=== PATIENT | female | born 1955 | race Caucasian/White ===

== ENCOUNTER 2017-08-12 05:52 | Inpatient (IN) | payer MEDICARE ==
[~2017-08-12 05:52] MED LIST: Buffered Lidocaine 0.9% SYRIN* 5 ML/SYR SYRINGE INTRADERM ONE; Vancomycin(*) 1,000 MG in NS 0.9% 250 ML* 250 ML IVPB SCH
[2017-08-12] MEDS ORDERED: Dexamethasone IV* 4 MG/ML 1 ML (4 MG) IV SLOW PU ONE (06:00)
[2017-08-12] MEDS ORDERED: Scopolamine 1.5 mg* PATCH TRANSDERM ONE (06:00)
[2017-08-12] MEDS ORDERED: Famotidine IV* 10 MG/ML 2 ML (20 mg) IV ONE (06:00)
[2017-08-12] MEDS ORDERED: Dexamethasone IV* 4 MG/ML 1 ML (4 MG) ONE (06:03)
[2017-08-12] MEDS ORDERED: Scopolamine 1.5 mg* PATCH ONE (06:03)
[2017-08-12] MEDS ORDERED: Famotidine IV* 10 MG/ML 2 ML (20 mg) ONE (06:03)
[2017-08-12] MEDS ORDERED: Morphine INJ* 10 MG/ML 1 ML CARPUJECT ONE ×3 (06:45→17:51)
[2017-08-12] MEDS ORDERED: Vancomycin(*) 1,000 MG in NS 0.9% 250 ML* 250 ML IVPB ONE (07:00)
[2017-08-12] MEDS ORDERED: Metoprolol Succinate XL TAB* 50 MG PO ONE (07:00)
[2017-08-12] MEDS ORDERED: Lidocaine 2% PF * 5 ML VIAL ONE (07:04)
[2017-08-12] MEDS ORDERED: Propofol* 10 MG/ML 20 ML BTL IV PUSH ONE ×2 (07:04→12:10)
[2017-08-12] MEDS ORDERED: Midazolam* 1 MG/ML 5 ML VIAL (5 MG) ONE (07:05)
[2017-08-12] MEDS ORDERED: fentaNYL* 50 MCG/ML 2 ML VIAL (100 MCG VIAL) ONE ×7 (07:05→14:38)
[2017-08-12] MEDS ORDERED: Lidocaine 1% MPF wEPI 200,000* 30 ML SDV ONE (07:15)
[2017-08-12] MEDS ORDERED: Bacitracin IV* 50,000 UNITS INJ ONE (07:15)
[2017-08-12] MEDS ORDERED: Thrombin 5,000 UNITS* 1 APPLIC KIT - topical use - TOPICAL ONE (07:15)
[2017-08-12] MEDS ORDERED: Propofol* 500 MG/50 ML BTL ONE (07:28)
[2017-08-12] MEDS ORDERED: Remifentanil* 2 MG VIAL ONE (07:29)
[2017-08-12] MEDS ORDERED: EPHEDrine (Pressors)* 50 MG/ML VIAL ONE (08:17)
[2017-08-12] MEDS ORDERED: Clindamycin 900 MG IVPREMIX(* 0 MG/0 ML SDV IV ONE (08:26)
[2017-08-12] MEDS ORDERED: Metoprolol Tartrate IV* 1 MG/ML 5 ML VIAL ONE (10:25)
[2017-08-12] MEDS ORDERED: Phenylephrine INJ* 10 MG/ML 1 ML VIAL (10 MG) ONE (11:41)
[2017-08-12] MEDS ORDERED: Naloxone* 0.4 MG/ML 1 ML VIAL IV PRN (12:15)
[2017-08-12] MEDS ORDERED: Ondansetron INJ* 2 MG/ML VIAL IV PRN (12:15)
[2017-08-12] MEDS ORDERED: PROCHLORPERAZINE INJ 5 MG/ML 2 ML VIAL IV PRN (12:15)
[2017-08-12] MEDS ORDERED: DiMENhydriNATE IV* 50 MG/ML VIAL ONE (12:24)
[2017-08-12] MEDS: fentaNYL* 50 MCG/ML 2 ML VIAL (100 MCG VIAL) IV PRN ×4 (13:48→14:53)
[2017-08-12] MEDS: Morphine INJ* 2 MG/ML 1 ML CARPUJECT IV PRN ×5 (13:49→14:15)
[2017-08-12] MEDS ORDERED: Acetaminophen TAB* 325 MG PO PRN (13:59)
[2017-08-12] MEDS ORDERED: Magnesium Hydroxide LIQ* 30 ML UDC PO PRN (14:10)
[2017-08-12] MEDS ORDERED: Docusate CAP* 100 MG PO PRN (14:23)
[2017-08-12] MEDS ORDERED: Senna TAB PO PRN (14:23)
[2017-08-12] MEDS ORDERED: oxyCODONE/Acetamin 5/325 MG* TAB ONE (14:55)
[2017-08-12] MEDS: oxyCODONE/Acetamin 5/325 MG* TAB PO PRN ×2 (14:57→14:58)
[2017-08-12] MEDS ORDERED: Morphine TAB Extended Release (*) 30 MG TAB.ER PO SCH (15:00)
[2017-08-12] MEDS ORDERED: Morphine TAB Extended Release (*) 15 MG TAB.ER PO SCH (16:07)
[2017-08-12] MEDS: Ondansetron 40 MG VIAL* 2 MG/ML 20 ML VIAL IV PRN ×2 (17:26→23:32)
--- NOTE | 2017-08-12 17:27 | CONSULT ---
Consult Consult: INPATIENT PAIN CONSULTATION Sherice Fulton is a 61 year old female. She injured her back many years ago. She underwent an instrumented fusion [place] [address] Dias. She had a lot of pain post op. She has been a patient in the pain clinic since 1999. She has been on chronic opioids since that time. She had removal of hardware done by Dr. Pillai in 2000. She has been on chronic opioids since that time, most recently on MSIR 15 mg 6 times a day. Last fall, she began to have more pain radiating down her legs, particularly her right leg. She had a new MRI in the fall of 2016. Post surgical changes were seen, along with severe right neural foraminal narrowing at L3/4. She was sent to DR. Lees and had a new MRI in March 2017. Again was seen severe right neyral foraminal narrowing at L3/4, with a leftward lumbar curve. She had a CT myelogram in June showing significant disc height loss at L3/4. She was evaluated by neurosurgery and a right L3/4 MIS TLIF with interbody cage and pedicle screws was offered. She was admitted to [facility] today and had the surgery. She has a lot of pain post-op. I am asked to see her. PAST MEDICAL HISTORY: Migraines, Osteoporosis Allergies latex Allergy (Verified 08/05/17 10:42) Rash Penicillins Allergy (Verified 08/05/17 10:42) Unknown Reaction Details Sulfa (Sulfonamide Antibiotics) Allergy (Verified 08/05/17 10:42) Rash tapentadol Allergy (Verified 08/05/17 10:42) Hives alendronate sodium Adverse Reaction (Verified 08/05/17 10:42) GI Upset cyclobenzaprine Adverse Reaction (Verified 08/05/17 10:42) Nausea pregabalin Adverse Reaction (Verified 08/12/17 16:13) GI Upset PLASTIC SURGICAL DRAPES Allergy (Uncoded 08/12/17 06:09) Unknown Reaction Details PT HAD SURGERY ON SHOULDER AND HAD REACTION TO THE DRAPES USED. PT BROKE OUT IN HIVES AND HAD DIFFICULTY BREATHING. Current Medications Acetaminophen (Tylenol Tab*) 650 mg PO Q4H PRN PRN Reason: PAIN Hydrocodone Bitart/Acetaminophen ([place] 5-325 Tab*) 2 tab PO Q4H PRN PRN Reason: marked pain Docusate Sodium (Colace Cap*) 100 mg PO BID PRN PRN Reason: CONSTIPATION Lactated Ringer's (Lactated Ringers 1000 Ml Bag*) 1,000 mls @ 75 mls/hr IV .per rate TERRI Last Admin: 08/12/17 15:56 Dose: 75 mls/hr Magnesium Hydroxide (Milk Of Magnesia Liq*) 30 ml PO DAILY PRN PRN Reason: CONSTIPATION Methocarbamol (Robaxin Tab*) 1,000 mg PO Q6H PRN PRN Reason: SPASMS Metoprolol Succinate (Toprol Xl Tab*) 50 mg PO QAM [facility] Morphine Sulfate (Morphine Oral.Soln 10 Mg*) 20 mg PO Q4H PRN PRN Reason: PAIN - SEVERE Naloxone HCl (Narcan*) 0.08 mg IV Q2M PRN PRN Reason: severe induced resp depression Stop: 08/13/17 12:14 Ondansetron HCl (Zofran 40 Mg Vial*) 4 mg IV Q6H PRN PRN Reason: NAUSEA/VOMITING Last Admin: 08/12/17 17:26 Dose: 4 mg Pharmacy Profile Note (Scopolamine Patch Remove*) 1 note PATCH OFF ONCE ONE Stop: 08/15/17 06:01 Senna (Senokot Tab*) 1 tab PO BEDTIME PRN PRN Reason: CONSTIPATION SOCIAL HISTORY: Non smoker, Non drinker. Lives alone Vital Signs Temp Pulse Resp BP Pulse Ox 97.5 F 87 16 145/72 99 08/12/17 16:25 08/12/17 16:25 08/12/17 16:25 08/12/17 16:25 08/12/17 16:25 EXAM: HEENT: EOMI, PERRL LUNGS: Clear HEART: Reg rhythm ABDOMEN: Soft +BS EXTREMITIES: Normal tone BACK: Wound dressed NEUROLOGIC: ALert and oriented. Moves all 4 extremities ASSESSMENT: 1. S/P Right L3/4 MIS TLIF 2. Chronic opioid use PLAN: I will change her morphine from MS Contin 15 mg Q 4 PRN to Morphine elixir 20 mg Q4 PRN. I will also order IV MSO4 for unrelieved pain. She may need MS Contin as well. I have also added Robaxin for back spasms and bowel medications. I will follow.
[2017-08-12] MEDS ORDERED: Morphine VIAL* 4 MG/ML VIAL (1 ml vial) IV PRN (17:46)
[2017-08-12] MEDS ORDERED: Morphine VIAL* 4 MG/ML VIAL (1 ml vial) IV ONE (17:55)
[2017-08-12] MEDS ORDERED: Morphine INJ* 10 MG/ML 1 ML CARPUJECT IV ONE (17:55)
[2017-08-12] MEDS: Docusate CAP* 100 MG PO SCH (21:11)
[2017-08-12] MEDS: Morphine ORAL.SOLN 10 mg* 2 MG/ML UDC 5 ml PO PRN (21:12)
[2017-08-12] MEDS: Senna TAB PO SCH (21:12)
[2017-08-13] MEDS: Morphine VIAL* 4 MG/ML VIAL (1 ml vial) IV PRN ×3 (00:21→11:47)
[2017-08-13] MEDS: Ondansetron 40 MG VIAL* 2 MG/ML 20 ML VIAL IV PRN ×2 (06:07→11:47)
--- NOTE | 2017-08-13 07:19 | RAD ---
INDICATION: L3-L4 intraoperative fusion with interbody cage. COMPARISON: Correlation is made with a prior x-ray study from June 30, 2017. TECHNIQUE: 7.5 seconds of intermittent fluoroscopic guidance were provided and 3 spot films of the lumbar spine were obtained and a small [id number] limited CT images were obtained of the lumbar spine. FINDINGS: The films demonstrate placement of pedicle screws bilaterally at the L3-L4 level and interbody cage fusion graft. IMPRESSION: INTRAOPERATIVE CONTROL FILMS. CPT II Codes: G9500
--- NOTE | 2017-08-13 07:22 | RAD ---
INDICATION: L3-L4 pedicle fusion with interbody body cage fusion. COMPARISON: Correlation is made with a prior intraoperative study of the same date. TECHNIQUE: 42.1 seconds of intermittent fluoroscopic guidance were provided and 8 spot films of the lumbar spine were obtained in the operating room. FINDINGS: The films demonstrate an interbody cage fusion at the L3-L4 level and posterior spinal fusion with pedicle screws at that level. IMPRESSION: INTRAOPERATIVE CONTROL FILMS. CPT II Codes: G9500
[2017-08-13] MEDS: Docusate CAP* 100 MG PO SCH (08:29)
--- NOTE | 2017-08-13 08:32 | RAD ---
INDICATION: Back pain COMPARISON: None TECHNIQUE: Seated AP and lateral imaging of the thoracolumbar spine was performed . FINDINGS: There is osteopenia with a moderate S type scoliotic deformity. There is prior lumbar fusion with cage device and with decompression at L3-L4. There are no paravertebral abnormalities. IMPRESSION: INTERVAL L3-L4 FUSION.
[2017-08-13] MEDS ORDERED: SUMAtriptan TAB* 50 MG PO ONE ×2 (08:36→21:00)
[2017-08-13] MEDS: Metoprolol Succinate XL TAB* 50 MG PO SCH (09:19)
--- NOTE | 2017-08-13 11:03 | OP ---
DATE OF OPERATION: 08/12/17 - ROOM #352 DATE OF : 51 SURGEON: Susana Cunningham MD EDUCATION DEPARTMENT REGISTRAR: PRETTY Ramos. The case was done with the assistance of a surgical PA because of the complexity of the case. ANESTHESIA: General. PRE-OP DIAGNOSES: Degenerative disk disease L3-4, right L3-4 neural foraminal stenosis. POST-OP DIAGNOSES: Degenerative disk disease L3-4, right L3-4 neural foraminal stenosis. OPERATIVE PROCEDURE: The patient underwent right L3-4 MIS TLIF with PEEK expandable interbody cage, local bone graft, autologous left iliac crest bone graft through a seperate incision, DBX, pedicle screws L3 and L4, and intraoperative navigation. ESTIMATED BLOOD LOSS: 50 cc. COMPLICATIONS: None. SUMMARY: The patient is a very pleasant 61-year-old female with a long history of chronic back pain. The patient had a history of previous lumbar decompression and fusion with TLIF at L4-5 and L5-S1 by Dr. Dias. She subsequently developed infection and had her hardware removed by Dr. Pillai. The patient presented with significant back pain radiating to the right lower extremity with significant weakness on the right lower extremity. She also had chronic S1 radiculopathy. The patient failed conservative treatment modalities and she was offered the option of surgical intervention after MRI and CT myelogram findings were consistent with degenerative disk disease, deformity and right L3-4 neural foraminal stenosis due to asymmetric degeneration of the disk space. After explaining expectations, limitations, and possible complications of the procedure with complications included, but not limited to bleeding, infection, risk of injury to adjacent structures, coma, paralysis, , need for additional procedures, anesthesia risks, stroke, blindness, cancer, instability, hardware failure, adjacent level disease, pseudoarthrosis, pseudomeningocele, spinal fluid leak, need for placement of lumbar drain, the patient was agreeable to proceed with surgery and informed consent was obtained. She understood that her condition may not improve and in fact may get worse after the surgery and she may need to have additional procedures in the future. She also understood that operative plan may be modified according to intraoperative findings and conditions. DESCRIPTION OF PROCEDURE: The patient was brought to the operating room, was placed under general anesthesia by the anesthesia team. She was carefully positioned prone on the Kuldeep table and all bony prominences were meticulously padded. Her skin was prepped and draped in the standard fashion. After appropriate surgical pause and patient identification, a small incision over the left iliac crest was performed after infiltrating the skin with local anesthetic. A Corex trocar was used to harvest iliac crest bone graft minimally invasively while the navigation star was secured in place from the same incision. Intraoperative O-arm imaging was obtained and the patient later was transferred to the navigation platform. The appropriate surgical level was identified and the appropriate incisions were marked on the skin with use of intraoperative navigation. The skin was infiltrated with local anesthetic and a small paramedian incision over the right L3-4 disk space was performed with # 10 surgical blade. The incision was carried down into the dorsal fascia and over a series of dilators with the assistance of intraoperative navigation, [employer] tubular retractor system was introduced into the field. Intraoperative microscope was brought into the field and after removing the residual muscle fibers, the right L3-4 facet pars as well as the remnant of the lamina were readily identified. A significant amount of scar tissue was encountered. Careful and meticulous dissection of the scar tissue allowed for identification of the bone schultz of the lamina. These were further exposed with the use of micro curettes. High-speed drill was used to perform a hemilaminectomy, medial facetectomy, as well as partial resection of the pars in order to perform a wide decompression and gain access to the area of the disk space. A significant amount of scar tissue was encountered and very careful dissection was performed each step of the way. The medial and superior border of the pedicle of L4 was carefully skeletonized and after gentle medial retraction of the thecal sac and superior of the soft tissue containing the exiting nerve root , a fold of the posterior longitudinal ligament with small amount of disk was identified. A #15 surgical blade was used to incise the posterior longitudinal ligament and to remove the existing disk material. Due to significant disk height loss and collapse of the disk space, the disk space was identified with the use of high-speed drill, pituitary rongeurs and Kerrison punches. A small osteotome was used to enter the disk space and start the first dilator. Disk preparation was performed with a series of dilators and meticulous preparation of the endplates was performed. After appropriate sizing of the disk space and preparation of the endplates with curettes, an Elevate Medtronic PEEK expandable cage was inserted after being filled with locally harvested iliac crest bone graft and DBX while the remainder of the graft material was placed into the disk space prior to the insertion of the cage. The cage was carefully expanded and after confirmation of meticulous hemostasis and careful inspection of the wound, the dura was found to be free of any pressure phenomenon and meticulous hemostasis was confirmed. The tubular retractor was gently removed and the dorsal fascia was approximated with 0 interrupted Vicryl sutures. The second O-arm imaging was performed and confirmed excellent placement of the interbody cage. The data was used in the navigation platform in order to chan the projection of the pedicle screw trajectories on the skin. After infiltrating skin on the left side with local anesthetic, a #10 surgical blade was used to incise the skin on the left side. A navigated drill guide with high torque drill was used to cannulate the pedicles with stereotactic navigation under AP fluoroscopy. 6.5 x 45 mm [employer]tronic screws were then placed in each pedicle of L3 and L4 while 2 rods were then placed through the same stab wound incisions and secured with the screw head caps. Further intraoperative O-arm imaging was then obtained, which confirmed excellent placement of all hardware. After removing the extension towers and securing the screw head caps, the wounds were copiously irrigated and after meticulous inspection and confirmation of meticulous hemostasis, the wound closed by layers with 0 interrupted Vicryl sutures to approximate the dorsal fascia while the subcutaneous tissue was approximated with 2-0 interrupted Vicryl sutures. The skin was then covered with Dermabond. At the end of the procedure, all counts were reported to be correct. The patient remained hemodynamically stable throughout the case. Intraoperative electrophysiological monitoring was stable throughout the case. The patient was then turned supine, was extubated and was transferred to Recovery in excellent condition. The case was done with assistance of a surgical PA because of the complexity of the case. [id number]/[facility] #: [id number] CHERYL
[2017-08-13] MEDS ORDERED: PROCHLORPERAZINE INJ 5 MG/ML 2 ML VIAL ONE (12:09)
[2017-08-13] MEDS: PROCHLORPERAZINE INJ 5 MG/ML 2 ML VIAL IV PRN ×2 (12:11→18:14)
--- NOTE | 2017-08-13 13:00 | PN ---
Progress Note - Progress Note Date of Service: 08/13/17 Note: INPATIENT PAIN CONSULT-FOLLOW UP Sherice was visited. A lot of nausea overnight, so she has not been able to get oral morphine. The Zofran and Scopolamine have been ineffective. She also complains of migraines, but her triptan has not helped. Will try different anti- emetics Current Medications Acetaminophen (Tylenol Tab*) 650 mg PO Q4H PRN PRN Reason: PAIN Hydrocodone Bitart/Acetaminophen ([place] 5-325 Tab*) 2 tab PO Q4H PRN PRN Reason: marked pain Docusate Sodium (Colace Cap*) 100 mg PO BID [facility] Last Admin: 08/13/17 08:29 Dose: Not Given Lactated Ringer's (Lactated Ringers 1000 Ml Bag*) 1,000 mls @ 75 mls/hr IV .per rate [facility] Last Admin: 08/13/17 05:13 Dose: 75 mls/hr Magnesium Hydroxide (Milk Of Magnesia Liq*) 30 ml PO DAILY PRN PRN Reason: CONSTIPATION Methocarbamol (Robaxin Tab*) 1,000 mg PO Q6H PRN PRN Reason: SPASMS Metoclopramide HCl (Reglan Iv*) 10 mg IV Q6H PRN PRN Reason: NAUSEA/VOMITING Metoprolol Succinate (Toprol Xl Tab*) 50 mg PO QAM [facility] Last Admin: 08/13/17 09:19 Dose: 50 mg Morphine Sulfate (Morphine Oral.Soln 10 Mg*) 20 mg PO Q4H PRN PRN Reason: PAIN - SEVERE Last Admin: 08/12/17 21:12 Dose: 20 mg Morphine Sulfate (Morphine Vial*) 5 mg IV Q4HR PRN PRN Reason: PAIN - UNRELIEVED Last Admin: 08/13/17 11:47 Dose: 5 mg Pharmacy Profile Note (Scopolamine Patch Remove*) 1 note PATCH OFF ONCE ONE Stop: 08/15/17 06:01 Prochlorperazine Edisylate (Compazine Inj*) 5 mg IV Q6H PRN PRN Reason: NAUSEA/VOMITING Last Admin: 08/13/17 12:11 Dose: 5 ml Senna (Senokot Tab*) 2 tab PO BEDTIME [facility] Last Admin: 08/12/17 21:12 Dose: 2 tab Vital Signs Temp Pulse Resp BP Pulse Ox 97.5 F 80 16 125/81 96 08/13/17 03:05 08/13/17 07:42 08/13/17 12:37 08/13/17 07:42 08/13/17 07:42 EXAM: LUNGS: Clear HEART: Reg rhythm ABDOMEN: Soft BACK: wound dry ASSESSMENT: 1. L3/4 TLIF 2. Chronic pain 3. Nausea PLAN: Will continue current pain medications. Will add Regaln to compazine and d /c Scopolamine and Zofran. I may need to d/c Morphine in favor of something else
[2017-08-13] MEDS: Methocarbamol TAB* 500 MG PO PRN (13:06)
[2017-08-13] MEDS: Morphine ORAL.SOLN 10 mg* 2 MG/ML UDC 5 ml PO PRN (18:10)
[2017-08-13] MEDS: Metoclopramide IV* 5 MG/ML 2 ML VIAL IV PRN (21:32)
[2017-08-14] MEDS: Docusate CAP* 100 MG PO SCH ×3 (00:14→19:29)
[2017-08-14] MEDS: Senna TAB PO SCH ×2 (00:15→19:29)
[2017-08-14] MEDS: PROCHLORPERAZINE INJ 5 MG/ML 2 ML VIAL IV PRN ×3 (00:15→21:43)
[2017-08-14] MEDS: HYDROcodone/ACETAMIN 5-325 MG* 1 TAB PO PRN ×2 (01:37→06:15)
[2017-08-14] MEDS: Morphine VIAL* 4 MG/ML VIAL (1 ml vial) IV PRN ×3 (02:11→19:24)
[2017-08-14] MEDS ORDERED: SUMAtriptan TAB* 50 MG PO ONE (07:09)
--- NOTE | 2017-08-14 07:13 | PN ---
Progress Note - Progress Note Date of Service: 08/14/17 SOAP: Subjective: []POD # 2 C/O incisional pain,leg cramping as pre op Migraine headache yesterday Objective: []Neuro intact Dressing dry Assessment: []Slow progress Plan: []Plan to get Ho out Increase activity level
[2017-08-14] MEDS: Metoprolol Succinate XL TAB* 50 MG PO SCH (08:24)
[2017-08-14] MEDS ORDERED: HYDROmorphone TAB* 4 MG PO PRN (09:28)
[2017-08-14 09:35] LABS: ABS Basophils 0 10^3/ul (0-0.2); ABS Eosinophils 0.1 10^3/ul (0-0.6); ABS Lymphocytes 0.9 10^3/ul (1.0-4.8); ABS Monocytes 0.8 10^3/ul (0-0.8); ABS Neutrophils 5.5 10^3/ul (1.5-7.7); ABS Nucleated RBC 0 10^3/ul; Eosinophil % 1.3 % (0-6); Hematocrit 30 % (35-47); Hemoglobin 10.3 g/dl (12.0-16.0); Mean Corpuscular HGB Conc 34 g/dl (31-36); Mean Corpuscular Hemoglobin 30 pg (27-31); Mean Corpuscular Volume 87 fL (80-97); Mean Platelet Volume 7.3 um3 (7.4-10.4); Nucleated Red Blood Cells % 0.1; Platelet Count 201 10^3/ul (150-450); Red Blood Count 3.44 10^6/ul (4.0-5.4); Red Cell Distribution Width 13 % (10.5-15); White Blood Count 7.3 10^3/ul (3.5-10.8)
[2017-08-14] MEDS ORDERED: Butalb/Acetamin/Caff TAB* 1 TAB PO ONE (10:00)
[2017-08-14] MEDS: Metoclopramide IV* 5 MG/ML 2 ML VIAL IV PRN (10:42)
--- NOTE | 2017-08-14 14:03 | PN ---
Progress Note - Progress Note Date of Service: 08/14/17 Note: INPATIENT PAIN CONSULT-FOLLOW UP Continued nausea overnight with liquid morphine. I discussed her case with her primary nurse. I discontinued Morphine and tried Dilaudid 4 mg (15 mg Morphine eqivalence) every 4 hours as needed. She also had continued migraines not responsive to Triptans. I ordered one dose of Fioricet. Looks much better at the present time and feels better. Able to eat, pain controlled, headache better Current Medications Acetaminophen (Tylenol Tab*) 650 mg PO Q4H PRN PRN Reason: PAIN Hydrocodone Bitart/Acetaminophen ([place] 5-325 Tab*) 2 tab PO Q4H PRN PRN Reason: marked pain Last Admin: 08/14/17 06:15 Dose: 2 tab Docusate Sodium (Colace Cap*) 100 mg PO BID [facility] Last Admin: 08/14/17 08:24 Dose: 100 mg Hydromorphone HCl (Dilaudid Tab*) 4 mg PO Q4H PRN PRN Reason: PAIN Last Admin: 08/14/17 12:56 Dose: 4 mg Magnesium Hydroxide (Milk Of Magnesia Liq*) 30 ml PO DAILY PRN PRN Reason: CONSTIPATION Methocarbamol (Robaxin Tab*) 1,000 mg PO Q6H PRN PRN Reason: SPASMS Last Admin: 08/13/17 13:06 Dose: 1,000 mg Metoclopramide HCl (Reglan Iv*) 10 mg IV Q6H PRN PRN Reason: NAUSEA/VOMITING Last Admin: 08/14/17 10:42 Dose: 10 mg Metoprolol Succinate (Toprol Xl Tab*) 50 mg PO QAM [facility] Last Admin: 08/14/17 08:24 Dose: 50 mg Morphine Sulfate (Morphine Vial*) 5 mg IV Q4HR PRN PRN Reason: PAIN - UNRELIEVED Last Admin: 08/14/17 07:38 Dose: 5 mg Pharmacy Profile Note (Scopolamine Patch Remove*) 1 note PATCH OFF ONCE ONE Stop: 08/15/17 06:01 Prochlorperazine Edisylate (Compazine Inj*) 5 mg IV Q6H PRN PRN Reason: NAUSEA/VOMITING Last Admin: 08/14/17 07:30 Dose: 5 ml Senna (Senokot Tab*) 2 tab PO BEDTIME [facility] Last Admin: 08/14/17 00:15 Dose: Not Given Laboratory Results - last 24 hr 08/14/17 08/14/17 08:44 08:44 WBC 7.3 RBC 3.44 L Hgb 10.3 L Hct 30 L MCV 87 MCH 30 MCHC 34 RDW 13 Plt Count 201 MPV 7.3 L Neut % (Auto) 75.2 Lymph % (Auto) 12.0 L [place] % (Auto) 10.9 H Eos % (Auto) 1.3 Baso % (Auto) 0.6 Absolute Neuts (auto) 5.5 Absolute Lymphs (auto) 0.9 L Absolute Monos (auto) 0.8 Absolute Eos (auto) 0.1 Absolute Basos (auto) 0 Absolute Nucleated RBC 0 Nucleated RBC % 0.1 Sodium 133 L Potassium 3.3 L Chloride 98 L Carbon Dioxide 28 Anion Gap 7 Vital Signs Temp Pulse Resp BP Pulse Ox 97.7 F 73 16 148/76 96 08/14/17 11:18 08/14/17 11:18 08/14/17 12:56 08/14/17 11:18 08/14/17 11:18 EXAM: LUNGS: Clear bilaterally HEART: Reg rhythm ABDOMEN: soft BACK: Dressing clean NEUROLOGIC: Alert oriented. Able to move all 4 extremities ASSESSMENT: 1. TLIF L3/4 2. Migraines 3. Nausea PLAN: Continue PO Dilaudid. Will try Reglan PO, and compazine PO. Fioricet 1 PO Q6 PRN
[2017-08-14] MEDS ORDERED: Prochlorperazine TAB* 10 MG PO PRN (14:10)
[2017-08-14] MEDS ORDERED: HYDROmorphone TAB* 2 MG PO PRN (14:14)
[2017-08-14] MEDS: Methocarbamol TAB* 500 MG PO PRN (15:02)
[2017-08-14] MEDS: Metoclopramide TAB* 10 MG PO SCH (17:34)
[2017-08-14] MEDS: HYDROmorphone TAB* 4 MG PO PRN ×2 (17:37→21:42)
[2017-08-14] MEDS: Butalb/Acetamin/Caff TAB* 1 TAB PO PRN (19:28)
[2017-08-15] MEDS: HYDROmorphone TAB* 4 MG PO PRN ×4 (01:38→15:00)
[2017-08-15] MEDS: Butalb/Acetamin/Caff TAB* 1 TAB PO PRN (03:20)
[2017-08-15] MEDS: Methocarbamol TAB* 500 MG PO PRN ×3 (03:24→20:26)
[2017-08-15] MEDS: PROCHLORPERAZINE INJ 5 MG/ML 2 ML VIAL IV PRN ×2 (05:44→23:19)
[2017-08-15] MEDS ORDERED: Scopolamine PATCH Remove* 1 NOTE MISC PATCH OFF ONE (06:00)
--- NOTE | 2017-08-15 07:02 | PN ---
Progress Note - Progress Note Date of Service: 08/15/17 SOAP: Subjective: []c/o poor pain control Had been switched to Dilaudid yeterday Has ambulated RLE pain better than pre op Objective: []Labs OK HCT 30 Dressing intact Assessment: []Very slow progress Plan: [] Pain management per Dr. Fuentes
[2017-08-15] MEDS: Docusate CAP* 100 MG PO SCH ×2 (07:54→19:11)
[2017-08-15] MEDS: Metoclopramide TAB* 10 MG PO SCH ×3 (07:54→17:04)
[2017-08-15] MEDS: Metoprolol Succinate XL TAB* 50 MG PO SCH (07:54)
[2017-08-15] MEDS: Morphine VIAL* 4 MG/ML VIAL (1 ml vial) IV PRN ×3 (12:56→21:34)
[2017-08-15] MEDS ORDERED: HYDROmorphone TAB* 4 MG PO PRN (18:30)
[2017-08-15] MEDS: HYDROmorphone TAB* 2 MG PO PRN ×2 (19:11→23:19)
[2017-08-15] MEDS: Senna TAB PO SCH (19:11)
[2017-08-16] MEDS: HYDROmorphone TAB* 2 MG PO PRN ×6 (03:10→23:28)
[2017-08-16] MEDS: Methocarbamol TAB* 500 MG PO PRN ×4 (04:20→23:26)
[2017-08-16] MEDS: Morphine VIAL* 4 MG/ML VIAL (1 ml vial) IV PRN (05:58)
[2017-08-16] MEDS: Docusate CAP* 100 MG PO SCH ×2 (07:40→19:49)
[2017-08-16] MEDS: Metoclopramide TAB* 10 MG PO SCH ×3 (07:40→17:01)
[2017-08-16] MEDS: Metoprolol Succinate XL TAB* 50 MG PO SCH (07:40)
[2017-08-16] MEDS: Senna TAB PO SCH (19:49)
[2017-08-17] MEDS: HYDROmorphone TAB* 2 MG PO PRN ×3 (03:21→11:53)
[2017-08-17] MEDS: Butalb/Acetamin/Caff TAB* 1 TAB PO PRN (04:39)
[2017-08-17] MEDS: Metoclopramide TAB* 10 MG PO SCH ×2 (07:30→11:54)
[2017-08-17] MEDS: Docusate CAP* 100 MG PO SCH (07:44)
[2017-08-17] MEDS: Metoprolol Succinate XL TAB* 50 MG PO SCH (07:44)
--- NOTE | 2017-08-17 08:45 | RAD ---
HISTORY: Scoliosis, status post spinal fusion COMPARISONS: August 13, 2017 VIEWS: 2 , Frontal and lateral views of the lumbar spine while standing FINDINGS: ALIGNMENT: There is a scoliotic curvature of the spine. VERTEBRAL BODIES: The patient is status post spinal fusion at L3 and L4 with bilateral pedicle screws. There is no hardware failure or osteolysis. JOINTS: There is facet hypertrophy change along the lower lumbar spine. INTERVERTEBRAL DISCS: An intervertebral prosthesis is noted at L3-L4. SOFT TISSUE: Unremarkable. OTHER: The pelvis is unremarkable. The lung bases are clear. 1. IMPRESSION: 2. SCOLIOSIS. 3. STATUS POST SPINAL FUSION.
[2017-08-17] MEDS: Methocarbamol TAB* 500 MG PO PRN (12:33)
[2017-08-17 12:36] VITALS: BP 130/68
--- NOTE | 2017-08-17 12:36 | PN ---
Progress Note - Progress Note Date of Service: 08/17/17 SOAP: Subjective: []Patient was seen late yesterday evening. No events ON. Ambulate, Tolerates PO well, Voids. Pain well controlled with PO medications. Preop RLE pain has resolved. Back pain has significantly improved. Wants to go home. Objective: []VSS, Afebrile Wounds s,c,d Motor 5/5 all extremities Sensory grossly intact to light touch, except Rt S1(decreased, but improved c/w baseline) Assessment: []61 yof sp Rt L3-4 MIS TLIF Plan: []Patient is doing very well. Wants to go home. Would not like to wait to be seen today. DC home today Patient to call office for lumbar brace. Appreciate Dr Lima's care. Discussed with Dr Lima, Patient has instructions to resume home pain meds and call Dr Lima's office with questions. Full instructions were given. Toyin Cunningham MD
--- NOTE | 2017-08-17 23:17 | DS ---
DISCHARGE SUMMARY: DATE OF ADMISSION: 08/12/17 DATE OF DISCHARGE: 08/17/17 PROCEDURE: The patient underwent a right L3-4 MIS TLIF with PEEK expandable interbody cage, local bone graft with autologous, iliac crest bone graft DBX, pedicle screws L3 and L4. HOSPITAL COURSE: The patient is a pleasant 61-year-old female with long history of chronic back pain. The patient had a history of previous lumbar decompression and fusion with TLIF at L4-5 and L5-S1 by Dr. Dias. She subsequently developed infection and had her hardware removed by Dr. Pillai. The patient presented with significant back pain radiating to the right lower extremity with significant weakness on the right lower extremity. The patient also had chronic S1 radiculopathy, unfortunately failed conservative treatment and because of CT scan and myelogram findings consistent with degenerative disk disease with significant right L3-4 neural foraminal stenosis due to asymmetric degeneration of the disk space. She was offered the option of surgical procedure in the form of right L3-4 MIS. The patient underwent the above procedure, tolerated the procedure well, was extubated and was transferred to the floor. She continued to improve. Her pain was controlled very well. She has a history of chronic pain medication use and for this reason, Dr. Fuentes was consulted to coordinate the patient's pain management. The patient continued to improve, was able to ambulate, tolerating p.o. well. She was voiding and had good pain control with p.o. medication and on 08/17/17, she was felt to be able to be discharged to home. The patient also felt ready and wanted to be discharged. DISPOSITION: Home. Full instructions were given to the patient. The patient was discharged home with instructions to resume her home pain medication regimen by Dr. Fuentes and was instructed to follow up in the office in 7 to 10 days for a wound check and follow up with Dr. Fuentes for any pain medication needs. She was also instructed to call her primary physician to review her medication list. [id number]/[facility] #: [id number] CHERYL
== END 2017-08-17 13:06 | disposition home or self-care (01) | DRG 460 ==
LOC: AA 05:52 → SSU 15:27
PROVIDERS: ADMIT Neurological Surgery; ATTEND Neurological Surgery
PROC: 0QB Lower Bones, Excision (ICD-10-PCS; 2017-08-12)
PROC: 0SB20ZZ Excision of Lumbar Vertebral Disc, Open Approach (ICD-10-PCS; 2017-08-12)
PROC: 8E0WXBF Computer Assisted Procedure of Trunk Region, With Fluoroscopy (ICD-10-PCS; 2017-08-12)
PROC: 0SG00AJ Fusion of Lumbar Vertebral Joint with Interbody Fusion Device, Posterior Approach, Anterior Column, Open Approach (ICD-10-PCS; principal; 2017-08-12 07:30)
DX: M51.16 Intervertebral disc disorders with radiculopathy, lumbar region (principal); G89.29 Other chronic pain; M25.78 Osteophyte, vertebrae; M41.86 Other forms of scoliosis, lumbar region; M47.896 Other spondylosis, lumbar region; F11.90 Opioid use, unspecified, uncomplicated; I10 Essential (primary) hypertension; M48.061 Spinal stenosis, lumbar region without neurogenic claudication; M81.0 Age-related osteoporosis without current pathological fracture; J32.2 Chronic ethmoidal sinusitis; J32.3 Chronic sphenoidal sinusitis; M54.2 Cervicalgia; M79.7 Fibromyalgia; G43.009 Migraine without aura, not intractable, without status migrainosus; R11.0 Nausea; Z80.8 Family history of malignant neoplasm of other organs or systems; Z82.61 Family history of arthritis; Z68.21 Body mass index [BMI] 21.0-21.9, adult; Z87.891 Personal history of nicotine dependence; Z80.3 Family history of malignant neoplasm of breast; Z82.49 Family history of ischemic heart disease and other diseases of the circulatory system; Z84.89 Family history of other specified conditions; Z82.3 Family history of stroke; Z83.49 Family history of other endocrine, nutritional and metabolic diseases; Z91.040 Latex allergy status; Z88.5 Allergy status to narcotic agent; Z88.0 Allergy status to penicillin; Z88.2 Allergy status to sulfonamides; Z88.8 Allergy status to other drugs, medicaments and biological substances; Z91.048 Other nonmedicinal substance allergy status; Z98.1 Arthrodesis status
CPT/HCPCS: 36415; 72100; 76001; 80051; 85025; A9270-GY; C1713; C9359; G8978-GP-CK; G8979-GP-CI; G8979-GP-CK; G8980-GP-CI; J0780; J1100; J1240; J2001; J2250; J2270; J2704; J2765; J3010; J3370; J3490; Q0164

== ENCOUNTER 2018-06-02 05:34 | Inpatient (IN) | payer MEDICARE, OTHER ==
[~2018-06-02 05:34] MED LIST changes: -Buffered Lidocaine 0.9% SYRIN* 5 ML/SYR SYRINGE INTRADERM ONE; +Buffered Lidocaine 1% SYRIN* 1 ML/SYRINGE INTRADERM ONE; -Vancomycin(*) 1,000 MG in NS 0.9% 250 ML* 250 ML IVPB SCH
[2018-06-02] MEDS ORDERED: Famotidine IV* 10 MG/ML 2 ML (20 mg) ONE (06:00)
[2018-06-02] MEDS ORDERED: Lactated Ringers 1000 ML Bag* 1,000 ML IV SCH (06:00)
[2018-06-02] MEDS ORDERED: Famotidine IV* 10 MG/ML 2 ML (20 mg) IV ONE (06:00)
[2018-06-02] MEDS ORDERED: Dexamethasone IV* 4 MG/ML 1 ML (4 MG) ONE (06:00)
[2018-06-02] MEDS ORDERED: Dexamethasone IV* 4 MG/ML 1 ML (4 MG) IV SLOW PU ONE (06:00)
[2018-06-02] MEDS ORDERED: Lidocaine 1% MPF wEPI 200,000* 30 ML SDV ONE (06:41)
[2018-06-02] MEDS ORDERED: Thrombin 5,000 UNITS* 1 APPLIC KIT - topical use - TOPICAL ONE (06:42)
[2018-06-02] MEDS ORDERED: Bacitracin IV* 50,000 UNITS INJ ONE (06:42)
[2018-06-02] MEDS ORDERED: Vancomycin(*) 750 MG in NS 0.9% 250 ML* 250 ML IVPB ONE (07:00)
[2018-06-02] MEDS ORDERED: Scopolamine 1.5 mg* PATCH ONE (07:23)
[2018-06-02] MEDS ORDERED: Ondansetron INJ* 2 MG/ML VIAL ONE (07:23)
[2018-06-02] MEDS ORDERED: Propofol* 500 MG/50 ML BTL ONE ×2 (07:23→09:23)
[2018-06-02] MEDS ORDERED: Propofol* 10 MG/ML 20 ML BTL ONE (07:23)
[2018-06-02] MEDS ORDERED: Lidocaine 2% PF * 5 ML VIAL ONE (07:23)
[2018-06-02] MEDS ORDERED: Midazolam* 1 MG/ML 5 ML VIAL (5 MG) ONE (07:27)
[2018-06-02] MEDS ORDERED: fentaNYL* 50 MCG/ML 5 ML VIAL (250 MCG VIAL) ONE ×2 (07:27→08:34)
[2018-06-02] MEDS ORDERED: Atracurium* 10 MG/ML 10 ML VIAL ONE (07:27)
[2018-06-02] MEDS ORDERED: EPHEDrine (Pressors)* 50 MG/ML VIAL ONE (08:34)
[2018-06-02] MEDS ORDERED: Naloxone* 0.4 MG/ML 1 ML VIAL IV PRN (09:19)
[2018-06-02] MEDS ORDERED: DiMENhydriNATE IV* 50 MG/ML VIAL IV PUSH PRN (09:19)
[2018-06-02] MEDS ORDERED: Ondansetron INJ* 2 MG/ML VIAL IV PRN (09:19)
[2018-06-02] MEDS ORDERED: fentaNYL* 50 MCG/ML 2 ML VIAL (100 MCG VIAL) ONE ×2 (10:57→12:00)
[2018-06-02] MEDS: fentaNYL* 50 MCG/ML 2 ML VIAL (100 MCG VIAL) IV PRN ×3 (10:58→12:01)
[2018-06-02] MEDS ORDERED: HYDROmorphone INJ1* 1 MG/ML SYRINGE ONE (11:13)
[2018-06-02] MEDS: HYDROmorphone INJ1* 1 MG/ML SYRINGE IV PRN ×5 (11:18→11:51)
[2018-06-02] MEDS: Cyclobenzaprine TAB* 10 MG PO PRN ×2 (11:57→13:43)
--- NOTE | 2018-06-02 13:13 | OP ---
DATE OF OPERATION: 06/02/18 - ROOM #334 DATE OF : 51 SURGEON: Susana Cunningham MD [employer] SPECIALIST: Netta German, surgical PA. The case was done with assistance of surgical PA because of the complexity of the case. ANESTHESIA: General. PRE-OP DIAGNOSES: 1. Degenerative disk disease. 2. Herniated nucleus pulposus. POST-OP DIAGNOSES: 1. Degenerative disk disease. 2. Herniated nucleus pulposus. OPERATIVE PROCEDURE: The patient underwent anterior cervical diskectomy and fusion at C4-5 and C5-6 with PEEK interbody cage, local bone graft, DBX, plate and screws with intraoperative monitoring. ESTIMATED BLOOD LOSS: 20 cc. COMPLICATIONS: None. SUMMARY: The patient is a very pleasant 62-year-old female who had undergone in the past L3-4 minimally invasive TLIF and returned with neck pain radiating to mostly the right upper extremity and the recent pain to the left upper extremity with MRI findings consistent with degenerative disk disease. The patient failed conservative treatment modalities and she was offered the option of surgical intervention in the form of anterior cervical diskectomy and fusion. After explaining the expectations, limitations and possible complications of the procedure to the patient and her niece with complications including, but not limited to bleeding, infection, risk of injury to adjacent structures, coma, paralysis, , need for additional procedures, anesthesia risks, stroke, blindness, cancer, instability, hardware failure, adjacent level disease, pseudoarthrosis, recurrent laryngeal nerve injury, spinal fluid leak, Juan syndrome, need for tracheostomy or gastrostomy, injury to esophagus or trachea, injury to thoracic duct, the patient was agreeable to proceed with surgery and informed consent was obtained. The patient understood that her condition may not improve and in fact may get worse after surgery and that she may need to have additional procedures in the future. She also understood that operative plan may be modified according to intraoperative findings and conditions and that the case may be abandoned or done in more than 1 stages. The patient understood that she may require prolonged ICU stay. DESCRIPTION OF PROCEDURE: The patient was brought to the operating room and was placed under general anesthesia by anesthesia team. She was carefully positioned supine on the operative table and all bony prominences were meticulously padded. Her skin was prepped and draped in the standard fashion and after appropriate surgical pause and patient identification, a small transverse incision over the right side of the midline was marked on the skin with assistance of intraoperative fluoroscopic imaging. The skin was infiltrated with local anesthetic. A #10 surgical blade was used to incise the skin. The skin was undermined with tenotomy scissors and the platysma was then gently divided with the use of tenotomy scissors and Bovie cautery. The platysma was then undermined and self-retaining retractors were introduced further into the field. The plane between the medial border of the sternocleidomastoid and the medial structures was then gently developed with use of sharp and blunt dissection. The prevertebral fascia was identified. The appropriate surgical level was confirmed with intraoperative fluoroscopic imaging. Self-retaining retractors were introduced into the field and Penrose pins were secured to the C4, C5, and C6 level. A second intraoperative fluoroscopic image confirmed appropriate levels and a diskectomy was performed at the C4-5 level first after incising the annulus fibrosus with a #10 surgical blade with use of pituitary rongeurs, Kerrison punches, curettes, and high- speed drill. Locally harvested bone graft during the disk preparation was saved for the arthrodesis part of the procedure. The posterior longitudinal ligament was then gently divided with #1 Kerrison under microscopic magnification and bilateral foraminotomies were performed. After meticulous hemostasis was confirmed and copious irrigation, the disk space was sized and a 7mm PEEK interbody cage filled with locally harvested bone graft and DBX was gently inserted. The Penrose pin at the C4 vertebral body was then gently removed and the retractors were then repositioned at over the C5-6 level. The procedure was repeated for this level and a 7mm PEEK interbody cage was inserted. After removal of the Penrose pins, a 37-mm ZEVO Medtronic plate was placed and secured with temporary pins. Intraoperative fluoroscopic imaging confirmed excellent placement of all hardware and then the plate was secured in place with 3.5 x 13 mm screws. Final intraoperative fluoroscopic imaging confirmed excellent placement of all hardware and locking mechanism was engaged. After copious irrigation and confirmation of meticulous hemostasis and meticulous inspection, the self-retaining retractors were removed and the wound was closed in layers over a Jarocho drain, which was tunneled through a separate stab wound incision. The platysma was approximated with 2-0 interrupted Vicryl sutures while the subcutaneous tissue was approximated with inverted interrupted 2-0 Vicryl sutures. The skin was then covered with Dermabond. At the end of the procedure, all counts were reported to be correct. The patient remained hemodynamically stable throughout the case and intraoperative electrophysiological monitoring remained stable throughout the case. The patient was then extubated and was transferred to Recovery in excellent condition, moving all extremities well. The case was done with the assistance of surgical PA because of the complexity of the case. [id number]/[facility] #: [id number] CHERYL
[2018-06-02] MEDS: Lactated Ringers 1000 ML Bag* 1,000 ML IV SCH (13:15)
[2018-06-02] MEDS: Morphine ORAL.SOLN 10 mg* 2 MG/ML UDC 5 ml PO PRN ×2 (14:25→21:31)
[2018-06-02] MEDS ORDERED: Benzocaine/Menthol LOZ* 1 LOZENGE PO PRN (15:15)
--- NOTE | 2018-06-02 17:02 | CONSULT ---
Consult Consult: INPATIENT PAIN CONSULTATION Amanda Fulton is a 62 year old female. She injured her back originally when she fell off a ladder in 1995 while working at a [employer]. She had surgery on her low back by Dr. Dias in 1998. The surgery was complicated by an infection. Dr. Pillai removed the hardware in 2000. She has been on chronic opioid therapy since 1998. She had a spinal cord stimulator that did not help and was removed. Most recently she was on Morphine Sulfate IR 15 mg Q4, MDD=6, as well as Embeda 20 mg daily. She had increasing pain down her legs and saw Dr. Cunningham and had a new MRI of her lumbar spine. In Jul, 2017, she had a right MIS L/4 TLIF. She also began to have pain in her neck down her arm. Dr. Cunningham ordered an MRI of her cervical spine. She was admitted today and underwent an ACDF at C4/5 and C5/6 with PEEK interbody cage. I am asked to assist in postoperative pain management. PAST MEDICAL HISTORY: HTN Allergies Allergy/AdvReac Type Severity Reaction Status Date / Time latex Allergy Rash Verified 06/02/18 06:08 Penicillins Allergy Unknown Verified 06/02/18 06:08 Reaction Details Sulfa (Sulfonamide Allergy Rash Verified 06/02/18 06:08 Antibiotics) tapentadol Allergy Hives Verified 06/02/18 06:08 alendronate sodium AdvReac GI Upset Verified 06/02/18 06:08 gabapentin AdvReac See Comment Verified 06/02/18 06:08 pregabalin AdvReac GI Upset Verified 06/02/18 06:08 PLASTIC SURGICAL DRAPES Allergy Unknown Uncoded 06/02/18 06:08 Reaction Details Current Medications Cyclobenzaprine HCl (Flexeril Tab*) 10 mg PO TID PRN PRN Reason: SPASMS Last Admin: 06/02/18 13:43 Dose: 10 mg Docusate Sodium (Colace Cap*) 100 mg PO BID [facility] Lactated Ringer's (Lactated Ringers 1000 Ml Bag*) 1,000 mls @ 75 mls/hr IV .per rate TERRI Last Admin: 06/02/18 13:15 Dose: 75 mls/hr Metoprolol Succinate (Toprol Xl Tab*) 50 mg PO QAM [facility] Morphine Sulfate (Morphine Oral.Soln 10 Mg*) 20 mg PO Q4H PRN PRN Reason: PAIN - MODERATE TO SEVERE Last Admin: 06/02/18 14:25 Dose: 20 mg Senna (Senokot Tab*) 2 tab PO BID [facility] Sumatriptan Succinate (Imitrex Tab*) 100 mg PO BID PRN PRN Reason: Migraines Throat Lozenges (Chloraseptic Sesar*) 1 sesar PO Q6H PRN PRN Reason: SORE THROAT Last Admin: 06/02/18 15:49 Dose: 1 sesar SOCIAL HISTORY: Non smoker, non drinker. Lives in [facility] that is 2 levels. Lives alone. Bedroom upstairs. Bathroom on both levels ROS: No CP or SOB Vital Signs Temp Pulse Resp BP Pulse Ox 97.4 F 87 18 130/76 99 06/02/18 17:00 06/02/18 17:00 06/02/18 17:00 06/02/18 17:00 06/02/18 17:00 EXAM: NECK: immobilized in collar LUNGS: Clear bilaterally HEART: Regular rhythm ABDOMEN: Soft EXTREMITIES: Normal tone NEUROLOGIC: Moves all 4 extremities. 5/5 strength. Able to walk to bathroom ASSESSMENT: 1. ACDF, C4/5 and C5/6 2. CHronic opioid use PLAN: The hospital doesn't carry Embeda or MSIR. Will write for Morphine elixir , 20 mg Q4 PRN, MS Contin 15 mg BID and Morphine IV 4 mg IV 6 for extreme pain. May go home tomorrow, will stop IV Morphine tomorrow morning
[2018-06-02] MEDS ORDERED: Magnesium Hydroxide LIQ* 30 ML UDC PO PRN (17:23)
[2018-06-02] MEDS: Morphine 4 MG/ML VIAL (1 ml) 4 MG/ML VIAL IV PRN (18:15)
[2018-06-02] MEDS: Morphine TAB Extended Release (*) 15 MG TAB.ER PO SCH (21:32)
[2018-06-02] MEDS: Magnesium Hydroxide LIQ* 30 ML UDC PO SCH (21:33)
[2018-06-02] MEDS: Docusate CAP* 100 MG PO SCH (21:33)
[2018-06-02] MEDS: Senna TAB PO SCH (21:33)
[2018-06-03] MEDS: Morphine ORAL.SOLN 10 mg* 2 MG/ML UDC 5 ml PO PRN ×2 (02:19→07:20)
[2018-06-03] MEDS: Lactated Ringers 1000 ML Bag* 1,000 ML IV SCH (02:19)
[2018-06-03] MEDS: Morphine 4 MG/ML VIAL (1 ml) 4 MG/ML VIAL IV PRN ×2 (03:48→15:31)
[2018-06-03] MEDS: Magnesium Hydroxide LIQ* 30 ML UDC PO SCH ×2 (08:37→21:34)
[2018-06-03] MEDS: Docusate CAP* 100 MG PO SCH ×2 (08:38→20:05)
[2018-06-03] MEDS: Morphine TAB Extended Release (*) 15 MG TAB.ER PO SCH ×2 (08:45→20:05)
[2018-06-03] MEDS: SUMAtriptan TAB* 100 MG PO PRN ×2 (08:46→12:56)
[2018-06-03] MEDS: Metoprolol Succinate XL TAB* 25 MG PO SCH (08:46)
[2018-06-03] MEDS: Senna TAB PO SCH ×2 (08:47→20:05)
[2018-06-03] MEDS: Ondansetron INJ* 2 MG/ML VIAL IV PRN (11:02)
--- NOTE | 2018-06-03 12:03 | PN ---
Progress Note - Progress Note Date of Service: 06/03/18 SOAP: Subjective: [S/p ACD F C4-5, C5-6 POD#1 Reports neck pain, nausea and headache this morning. Right sided neck pain and soreness Has not been able to eat much Is ambulating well Pain management per Dr. Fuentes Wearing MJ collar ] Objective: [ Vital Signs: Temp Pulse Resp BP Pulse Ox 98.2 F 79 16 162/88 98 06/03/18 08:01 06/03/18 08:01 06/03/18 11:00 06/03/18 08:01 06/03/18 08:50 General: Alert, recumbent in bed Neuro: Motor and sensory intact Incision: Intact, wound drain dc today without complication. No swelling, erythema ] Assessment: [S/p ACD F, requires further monitoring for pain, nausea, mobility.] Plan: [1. Encourage OOB and ambulation 2. MJ collar 3. Pain management per Dr. Fuentes 4. Admit to inpatient 5. Possible dc home tomorrow]
[2018-06-03] MEDS ORDERED: PROCHLORPERAZINE INJ 5 MG/ML 2 ML VIAL IV PRN (16:28)
--- NOTE | 2018-06-03 17:14 | PN ---
Progress Note - Progress Note Date of Service: 06/03/18 Note: S:I was asked to see Ms Fulton for HTN. At the time of my visit the patient is having a severe migraine with associated light sensitivity and marked nausea. She does not really answer any of my questions and therefore this is a brief consultation. She is able to tell me that this headache is similar to what she experiences at home. She tried taking imitrex earlier today but it has not helped. The nausea currently is her biggest issue. She states the pain in her neck is fairly well controlled currently. O: T 97.7 BP 169/93 HR 73 RR 16 O2 sat 96% On exam she is sitting up in bed holding her head, eyes closed, not answering questions. Cardiac exam reveals a nl S1S2 RRR, lungs are clear anteriorly, abdomen is soft, NT/ND, BS+, extremities do not have any edema. Full ROM of the UE, LE not tested. A/P: 62 yo F s/p ACD F C4/5, C5/6 who now has migraine and moderate HTN. 1. ACD F C4/5 C5/6: management per neurosurgery. 2. Migraine: the patient states this migraine is similar to what she will develop at home. She takes imitrex usually about twice a week. Nausea is currently the biggest issue. Start prn compazine and reglan in addition to prn zofran. Continue BID prn imitrex. She states she has tried prophylactic medications in the past but nothing helped. For the headache itself will also try magnesium sulfate 2g IV now. Continue current narcotic regimen. I do not think she needs a CT as this is like her usual headaches. 2. HTN: the patient has a h/o HTN and is on metoprolol XL at baseline. Will add amlodipine 5mg daily-start tonight and monitor BP. I doubt pain alone is the driving factor to her elevated BP. 3. Hospitalist will continue to follow.
[2018-06-03] MEDS ORDERED: Magnesium Sulfate 2 GM IV* 2 GM/50 ML BAG IVPB ONE (17:17)
[2018-06-03] MEDS: Metoclopramide IV* 5 MG/ML 2 ML VIAL IV PRN (17:38)
[2018-06-03] MEDS: amLODIPine TAB* 5 MG PO SCH (20:05)
[2018-06-03] MEDS: PROCHLORPERAZINE INJ 5 MG/ML 2 ML VIAL IV PRN (20:30)
[2018-06-04] MEDS: Ondansetron INJ* 2 MG/ML VIAL IV PRN ×3 (03:19→21:46)
[2018-06-04] MEDS: Morphine 4 MG/ML VIAL (1 ml) 4 MG/ML VIAL IV PRN ×3 (03:21→20:04)
[2018-06-04] MEDS: SUMAtriptan TAB* 100 MG PO PRN (07:48)
[2018-06-04] MEDS: amLODIPine TAB* 5 MG PO SCH (07:50)
[2018-06-04] MEDS: Metoclopramide IV* 5 MG/ML 2 ML VIAL IV PRN ×2 (07:54→20:01)
--- NOTE | 2018-06-04 08:19 | PN ---
Subjective Date of Service: 06/04/18 Interval History: Pt continues to have nausea and is difficult for her to swallow due to C spine collar. Headache is a little better than yesterday Objective Active Medications: Amlodipine Besylate (Norvasc Tab*) 5 mg PO DAILY [facility] Last Admin: 06/04/18 07:50 Dose: 5 mg Cyclobenzaprine HCl (Flexeril Tab*) 10 mg PO TID PRN PRN Reason: SPASMS Last Admin: 06/02/18 13:43 Dose: 10 mg Docusate Sodium (Colace Cap*) 100 mg PO BID [facility] Last Admin: 06/03/18 20:05 Dose: 100 mg Magnesium Hydroxide (Milk Of Magnesia Liq*) 30 ml PO BID [facility] Last Admin: 06/03/18 21:34 Dose: Not Given Metoclopramide HCl (Reglan Iv*) 10 mg IV Q6H PRN PRN Reason: NAUSEA/VOMITING Last Admin: 06/04/18 07:54 Dose: 10 mg Metoprolol Succinate (Toprol Xl Tab*) 50 mg PO QAM [facility] Last Admin: 06/03/18 08:46 Dose: 50 mg Morphine Sulfate (Morphine Oral.Soln 10 Mg*) 20 mg PO Q4H PRN PRN Reason: PAIN - MODERATE TO SEVERE Last Admin: 06/03/18 07:20 Dose: 20 mg Morphine Sulfate (Ms Contin(*)) 15 mg PO Q12H [facility] Last Admin: 06/03/18 20:05 Dose: 15 mg Morphine Sulfate (Morphine 4 Mg/Ml Vial (1 Ml)) 4 mg IV Q4H PRN PRN Reason: PAIN - SEVERE Last Admin: 06/04/18 03:21 Dose: 4 mg Ondansetron HCl (Zofran Inj*) 4 mg IV Q6H PRN PRN Reason: NAUSEA Last Admin: 06/04/18 03:19 Dose: 4 mg Prochlorperazine Edisylate (Compazine Inj*) 10 mg IV Q6H PRN PRN Reason: NAUSEA/VOMITING Last Admin: 06/03/18 20:30 Dose: 10 mg Senna (Senokot Tab*) 2 tab PO BID [facility] Last Admin: 06/03/18 20:05 Dose: 2 tab Sumatriptan Succinate (Imitrex Tab*) 100 mg PO BID PRN PRN Reason: Migraines Last Admin: 06/04/18 07:48 Dose: 100 mg Throat Lozenges (Chloraseptic Sesar*) 1 sesar PO Q6H PRN PRN Reason: SORE THROAT Last Admin: 06/02/18 15:49 Dose: 1 sesar Vital Signs - 8 hr 06/04/18 06/04/18 06/04/18 03:21 03:48 04:20 Temperature 98.0 F Pulse Rate 83 Respiratory 18 14 16 Rate Blood Pressure 151/73 (mmHg) O2 Sat by Pulse 94 Oximetry 06/04/18 08:00 Temperature Pulse Rate Respiratory 16 Rate Blood Pressure (mmHg) O2 Sat by Pulse 94 Oximetry Oxygen Devices in Use Now: None Appearance: 62 yo f in nAD, AAOx3 Eyes: No Scleral Icterus, PERRLA Ears/Nose/Mouth/Throat: NL Teeth, Lips, Gums, Mucous Membranes Moist Neck: NL Appearance and Movements; NL JVP, Trachea Midline, - - C spine collar in place, post op incisions covered with dressings, not removed Respiratory: Symmetrical Chest Expansion and Respiratory Effort, Clear to Auscultation Cardiovascular: NL Sounds; No Murmurs; No JVD, RRR Abdominal: NL Sounds; No Tenderness; No Distention Lymphatic: No Cervical Adenopathy Extremities: No Edema, No Clubbing, Cyanosis Skin: No Rash or Ulcers, No Nodules or Sclerosis Neurological: Alert and Oriented x 3, NL Muscle Strength and Tone Result Diagrams: 06/04/18 08:04 Assess/Plan/Problems-Billing Assessment: 62 yo f s/p anterior cervical diskectomy (ACD) with post op migraine - Patient Problems (1) Cervical spondylosis Comment: post op as per neurosurgery (2) Migraine Comment: the patient states this migraine is similar to what she would develop at home. She takes imitrex usually about twice a week. Nausea is currently the biggest issue. Cont prn compazine and reglan in addition to prn zofran. Continue BID prn imitrex. will start IVF due to low PO intake (3) HTN (hypertension) Comment: patient has a h/o HTN and is on metoprolol XL at baseline. cont added amlodipine 5mg daily (4) DVT prophylaxis Comment: ambulation Status and Disposition: Medicine consult, will follow
[2018-06-04 08:21] LABS: ABS Basophils 0 10^3/ul (0-0.2); ABS Eosinophils 0 10^3/ul (0-0.6); ABS Lymphocytes 0.8 10^3/ul (1.0-4.8); ABS Monocytes 0.8 10^3/ul (0-0.8); ABS Neutrophils 6.5 10^3/ul (1.5-7.7); ABS Nucleated RBC 0 10^3/ul; Eosinophil % 0.1 %; Hematocrit 40 % (33-41); Hemoglobin 13.8 g/dL (12.0-16.0); Lymphocyte % 9.5 %; Mean Corpuscular HGB Conc 34 g/dL (31-36); Mean Corpuscular Hemoglobin 31 pg (27-31); Mean Corpuscular Volume 89 fL (80-97); Mean Platelet Volume 6.8 fL (7.4-10.4); Nucleated Red Blood Cells % 0; Platelet Count 264 10^3/uL (150-450); Red Blood Count 4.52 10^6 /uL (3.70-4.87); Red Cell Distribution Width 13 % (10.5-15); White Blood Count 8.1 10^3/uL (3.5-10.8)
[2018-06-04 08:30] LABS: BUN/Creatinine Ratio 36.4 (8-20); Calcium 9.3 mg/dL (8.6-10.3); EGFR African American 174.2 (>60); Potassium 4.1 mmol/L (3.5-5.0)
[2018-06-04] MEDS ORDERED: NS 0.9% 1000 ML** 1,000 ML IV SCH (08:30)
[2018-06-04] MEDS: Morphine TAB Extended Release (*) 15 MG TAB.ER PO SCH ×2 (09:37→19:59)
[2018-06-04] MEDS: Metoprolol Succinate XL TAB* 25 MG PO SCH (09:42)
[2018-06-04] MEDS: Magnesium Hydroxide LIQ* 30 ML UDC PO SCH ×2 (09:44→21:39)
[2018-06-04] MEDS: Docusate CAP* 100 MG PO SCH ×2 (09:44→21:45)
[2018-06-04] MEDS: Senna TAB PO SCH ×2 (09:44→21:39)
--- NOTE | 2018-06-04 15:13 | PN ---
Progress Note - Progress Note Date of Service: 06/04/18 SOAP: Subjective: []POD # 2 Patient complains of difficulty swallowing Also has moderate shoulder pain which she does feel is improving Started back on IVF due to poor PO intake Objective: []Neck wound OK Neuro intact Assessment: []Very slow progress post op Plan: []Cont to increase PO intake,activity level
[2018-06-04] MEDS: Cyclobenzaprine TAB* 10 MG PO PRN (16:38)
[2018-06-04] MEDS ORDERED: amLODIPine TAB* 5 MG PO ONE (16:43)
[2018-06-04] MEDS: hydrALAZINE IV* 20 MG/ML VIAL IV SLOW PU PRN (17:28)
[2018-06-05] MEDS: PROCHLORPERAZINE INJ 5 MG/ML 2 ML VIAL IV PRN ×3 (00:02→18:49)
[2018-06-05] MEDS: Morphine 4 MG/ML VIAL (1 ml) 4 MG/ML VIAL IV PRN ×5 (00:05→21:22)
[2018-06-05] MEDS: hydrALAZINE IV* 20 MG/ML VIAL IV SLOW PU PRN ×2 (03:55→15:56)
[2018-06-05] MEDS: SUMAtriptan TAB* 100 MG PO PRN ×3 (03:55→20:11)
[2018-06-05 05:38] LABS: BUN/Creatinine Ratio 43.6 (8-20); Calcium 9.1 mg/dL (8.6-10.3); EGFR African American 200.2 (>60); EGFR Non-African American 165.5 (>60); Potassium 3.9 mmol/L (3.5-5.0)
[2018-06-05] MEDS: Ondansetron INJ* 2 MG/ML VIAL IV PRN ×3 (07:23→21:22)
[2018-06-05] MEDS ORDERED: NS 0.9% 1000 ML** 1,000 ML IV SCH (07:30)
[2018-06-05] MEDS: Morphine TAB Extended Release (*) 15 MG TAB.ER PO SCH ×2 (08:44→20:11)
[2018-06-05] MEDS: Metoprolol Succinate XL TAB* 25 MG PO SCH (08:45)
[2018-06-05] MEDS: Docusate CAP* 100 MG PO SCH ×2 (08:45→20:16)
[2018-06-05] MEDS: Magnesium Hydroxide LIQ* 30 ML UDC PO SCH ×2 (08:59→20:16)
--- NOTE | 2018-06-05 09:22 | PN ---
Subjective Date of Service: 06/05/18 Interval History: Pt continues to c/o migraine headache, today concentrated more in left temporal region. PO intake minimal. C/o difficulty swallowing solids and liquids don't taste good. Agrees to try Ensure Objective Active Medications: Amlodipine Besylate (Norvasc Tab*) 10 mg PO DAILY [facility] Cyclobenzaprine HCl (Flexeril Tab*) 10 mg PO TID PRN PRN Reason: SPASMS Last Admin: 06/04/18 16:38 Dose: 10 mg Docusate Sodium (Colace Cap*) 100 mg PO BID [facility] Last Admin: 06/05/18 08:45 Dose: 100 mg Hydralazine HCl (Apresoline Iv*) 5 mg IV SLOW PU Q6H PRN PRN Reason: HTN Last Admin: 06/05/18 03:55 Dose: 5 mg Sodium Chloride (Ns 0.9% 1000 Ml) 1,000 mls @ 75 mls/hr IV PER RATE [facility] Stop: 06/05/18 20:49 Last Admin: 06/05/18 08:44 Dose: 75 mls/hr Magnesium Hydroxide (Milk Of Magnesia Liq*) 30 ml PO BID [facility] Last Admin: 06/05/18 08:59 Dose: Not Given Metoclopramide HCl (Reglan Iv*) 10 mg IV Q6H PRN PRN Reason: NAUSEA/VOMITING Last Admin: 06/04/18 20:01 Dose: 10 mg Metoprolol Succinate (Toprol Xl Tab*) 50 mg PO QAM [facility] Last Admin: 06/05/18 08:45 Dose: 50 mg Morphine Sulfate (Morphine Oral.Soln 10 Mg*) 20 mg PO Q4H PRN PRN Reason: PAIN - MODERATE TO SEVERE Last Admin: 06/03/18 07:20 Dose: 20 mg Morphine Sulfate (Ms Contin(*)) 15 mg PO Q12H [facility] Last Admin: 06/05/18 08:44 Dose: 15 mg Morphine Sulfate (Morphine 4 Mg/Ml Vial (1 Ml)) 4 mg IV Q4H PRN PRN Reason: PAIN - SEVERE Last Admin: 06/05/18 07:23 Dose: 4 mg Ondansetron HCl (Zofran Inj*) 4 mg IV Q6H PRN PRN Reason: NAUSEA Last Admin: 06/05/18 07:23 Dose: 4 mg Prochlorperazine Edisylate (Compazine Inj*) 10 mg IV Q6H PRN PRN Reason: NAUSEA/VOMITING Last Admin: 06/05/18 09:05 Dose: 10 mg Senna (Senokot Tab*) 2 tab PO BID [facility] Last Admin: 06/04/18 21:39 Dose: Not Given Sumatriptan Succinate (Imitrex Tab*) 100 mg PO BID PRN PRN Reason: Migraines Last Admin: 06/05/18 03:55 Dose: 100 mg Throat Lozenges (Chloraseptic Sesar*) 1 sesar PO Q6H PRN PRN Reason: SORE THROAT Last Admin: 06/02/18 15:49 Dose: 1 sesar Vital Signs - 8 hr 06/05/18 06/05/18 06/05/18 03:07 03:45 07:20 Temperature 98.0 F 98.2 F Pulse Rate 93 102 Respiratory 14 16 14 Rate Blood Pressure 162/81 152/78 (mmHg) O2 Sat by Pulse 93 94 Oximetry 06/05/18 06/05/18 07:23 08:44 Temperature Pulse Rate Respiratory 14 14 Rate Blood Pressure (mmHg) O2 Sat by Pulse Oximetry Oxygen Devices in Use Now: None Result Diagrams: 06/04/18 08:04 06/05/18 04:46 Assess/Plan/Problems-Billing Assessment: 62 yo f s/p anterior cervical diskectomy (ACD) with post op migraine - Patient Problems (1) Cervical spondylosis Comment: post op as per neurosurgery (2) Migraine Comment: the patient states this migraine is similar to what she would develop at home. She takes imitrex usually about twice a week. Cont prn compazine and reglan for nausea, which seems to be improving. Ancouraged PO intake.in addition to prn zofran. Continue BID prn imitrex. cont IVF due to low PO intake and hyponatremia (3) HTN (hypertension) Comment: patient has a h/o HTN and is on metoprolol XL at baseline. cont added amlodipine at increased dose 10 mg daily (4) DVT prophylaxis Comment: ambulation (5) Hyponatremia Comment: hypovolemic. cont gentle IVF Status and Disposition: Medicine consult, will follow
[2018-06-05] MEDS: amLODIPine TAB* 5 MG PO SCH (11:08)
[2018-06-05] MEDS: Senna TAB PO SCH ×2 (11:08→21:21)
--- NOTE | 2018-06-05 18:14 | PN ---
Progress Note - Progress Note Date of Service: 06/05/18 SOAP: Subjective: []POD # 3 Cont to c/o difficulty swallowing Requiring IVF for hydration Dietary in to help with choices for PO Objective: []Neck soft Neuro intact Assessment: []Slight improvement Plan: []Slow post op course
[2018-06-06] MEDS: Morphine 4 MG/ML VIAL (1 ml) 4 MG/ML VIAL IV PRN ×3 (01:43→11:57)
[2018-06-06] MEDS: SUMAtriptan TAB* 100 MG PO PRN ×2 (05:38→13:09)
[2018-06-06] MEDS: hydrALAZINE IV* 20 MG/ML VIAL IV SLOW PU PRN (07:53)
[2018-06-06] MEDS: Ondansetron INJ* 2 MG/ML VIAL IV PRN ×2 (07:53→19:29)
[2018-06-06] MEDS: Morphine TAB Extended Release (*) 15 MG TAB.ER PO SCH (08:08)
--- NOTE | 2018-06-06 08:08 | PN ---
Progress Note - Progress Note Date of Service: 06/06/18 SOAP: Subjective: [S/p ACD F C4-5, C5-6, POD#4 Continues to have difficulty swallowing and eating secondary to throat soreness and nausea Nausea being controlled with medication She did eat a small amount of applesauce yesterday and has ensure available Was able to swallow pills whole this morning without increased nausea Reports left sided headache, has history of migraine Reports right shoulder pain, using ice pack RUE pain down into thumb significantly improved post op. ] Objective: [ Vital Signs: Temp Pulse Resp BP Pulse Ox 98.1 F 107 16 163/89 93 06/06/18 07:23 06/06/18 07:23 06/06/18 07:53 06/06/18 07:23 06/06/18 07:23 General: Recumbent in bed, NAD Neck: Soft and without swelling. MJ collar in place Neuro: Motor and sensory intact Incision: Intact , no swelling, erythema, tenderness, dressing in place] Assessment: [Slow progress post-op] Plan: [1. Continue pain management per Dr. Pérez 2. Encourage up out of bed to chair and ambulation 3. MJ collar 4. Possible dc home tomorrow]
[2018-06-06] MEDS: Metoprolol Succinate XL TAB* 25 MG PO SCH (09:41)
[2018-06-06] MEDS: Magnesium Hydroxide LIQ* 30 ML UDC PO SCH ×2 (09:41→22:51)
[2018-06-06] MEDS: amLODIPine TAB* 5 MG PO SCH (09:41)
[2018-06-06] MEDS: Docusate CAP* 100 MG PO SCH ×2 (09:41→23:45)
[2018-06-06] MEDS: Senna TAB PO SCH ×2 (09:43→22:51)
--- NOTE | 2018-06-06 10:26 | PN ---
Subjective Date of Service: 06/06/18 Interval History: Pt's migraine is resolving. Still cannot swallow. c/o food not tasting good and inability to swallow. Able o take sips of liquids PO. Did not like Ensure Objective Active Medications: Amlodipine Besylate (Norvasc Tab*) 10 mg PO DAILY [facility] Last Admin: 06/06/18 09:41 Dose: Not Given Cyclobenzaprine HCl (Flexeril Tab*) 10 mg PO TID PRN PRN Reason: SPASMS Last Admin: 06/04/18 16:38 Dose: 10 mg Docusate Sodium (Colace Cap*) 100 mg PO BID [facility] Last Admin: 06/06/18 09:41 Dose: Not Given Hydralazine HCl (Apresoline Iv*) 5 mg IV SLOW PU Q6H PRN PRN Reason: HTN Last Admin: 06/06/18 07:53 Dose: 5 mg Magnesium Hydroxide (Milk Of Magnesia Liq*) 30 ml PO BID [facility] Last Admin: 06/06/18 09:41 Dose: Not Given Metoclopramide HCl (Reglan Iv*) 10 mg IV Q6H PRN PRN Reason: NAUSEA/VOMITING Last Admin: 06/04/18 20:01 Dose: 10 mg Metoprolol Succinate (Toprol Xl Tab*) 50 mg PO QAM [facility] Last Admin: 06/06/18 09:41 Dose: Not Given Morphine Sulfate (Morphine Oral.Soln 10 Mg*) 20 mg PO Q4H PRN PRN Reason: PAIN - MODERATE TO SEVERE Last Admin: 06/03/18 07:20 Dose: 20 mg Morphine Sulfate (Ms Contin(*)) 15 mg PO Q12H [facility] Last Admin: 06/06/18 08:08 Dose: 15 mg Morphine Sulfate (Morphine 4 Mg/Ml Vial (1 Ml)) 4 mg IV Q4H PRN PRN Reason: PAIN - SEVERE Last Admin: 06/06/18 07:53 Dose: 4 mg Ondansetron HCl (Zofran Inj*) 4 mg IV Q6H PRN PRN Reason: NAUSEA Last Admin: 06/06/18 07:53 Dose: 4 mg Prochlorperazine Edisylate (Compazine Inj*) 10 mg IV Q6H PRN PRN Reason: NAUSEA/VOMITING Last Admin: 06/05/18 18:49 Dose: 10 mg Senna (Senokot Tab*) 2 tab PO BID [facility] Last Admin: 06/06/18 09:43 Dose: Not Given Sumatriptan Succinate (Imitrex Tab*) 100 mg PO BID PRN PRN Reason: Migraines Last Admin: 06/06/18 05:38 Dose: 100 mg Throat Lozenges (Chloraseptic Sesar*) 1 sesar PO Q6H PRN PRN Reason: SORE THROAT Last Admin: 06/02/18 15:49 Dose: 1 sesar Vital Signs - 8 hr 06/06/18 06/06/18 06/06/18 02:49 03:51 07:23 Temperature 97.9 F 98.1 F Pulse Rate 99 107 Respiratory 16 18 16 Rate Blood Pressure 170/87 163/89 (mmHg) O2 Sat by Pulse 95 93 Oximetry 06/06/18 06/06/18 06/06/18 07:53 08:00 08:08 Temperature Pulse Rate Respiratory 16 16 16 Rate Blood Pressure (mmHg) O2 Sat by Pulse 93 Oximetry 06/06/18 09:41 Temperature Pulse Rate Respiratory 16 Rate Blood Pressure (mmHg) O2 Sat by Pulse Oximetry Oxygen Devices in Use Now: None Appearance: 62 yo F in nAD, AAOx3 Eyes: No Scleral Icterus, PERRLA Ears/Nose/Mouth/Throat: NL Teeth, Lips, Gums, Mucous Membranes Moist Neck: NL Appearance and Movements; NL JVP, Trachea Midline, - - C spine collar in place post op incisions covered with dressings Respiratory: Symmetrical Chest Expansion and Respiratory Effort, Clear to Auscultation Cardiovascular: NL Sounds; No Murmurs; No JVD, RRR Abdominal: NL Sounds; No Tenderness; No Distention Lymphatic: No Cervical Adenopathy Extremities: No Edema, No Clubbing, Cyanosis Skin: No Rash or Ulcers, No Nodules or Sclerosis Neurological: Alert and Oriented x 3, NL Muscle Strength and Tone Result Diagrams: 06/04/18 08:04 06/05/18 04:46 Assess/Plan/Problems-Billing Assessment: 62 yo f s/p anterior cervical diskectomy (ACD) with post op migraine - Patient Problems (1) Cervical spondylosis Comment: post op as per neurosurgery (2) Migraine Comment: the patient states this migraine is similar to what she would develop at home. She Improved Continue BID prn imitrex. (3) HTN (hypertension) Comment: patient has a h/o HTN and is on metoprolol XL at baseline. cont added amlodipine at increased dose 10 mg daily (4) Hyponatremia Comment: hypovolemic. Off IVF, awaiting BMP results (5) Dysphagia Comment: will obtain swallow eval (6) DVT prophylaxis Comment: ambulation Status and Disposition: Medicine consult, will follow
[2018-06-06 10:45] LABS: BUN/Creatinine Ratio 41.7 (8-20); Calcium 9.6 mg/dL (8.6-10.3); EGFR African American 157.6 (>60); EGFR Non-African American 130.2 (>60); Potassium 3.7 mmol/L (3.5-5.0)
[2018-06-06] MEDS: NS 0.9% w/ 20 Meq KCL 1000 ML* 1,000 ML IV SCH (13:09)
[2018-06-06] MEDS ORDERED: Metoprolol Succinate XL TAB* 25 MG PO ONE (16:59)
--- NOTE | 2018-06-06 17:05 | PN ---
Progress Note - Progress Note Date of Service: 06/06/18 Note: INPATIENT PAIN-PROGRESS NOTE She has had migraines and nausea. She does not care for the liquid morphine and she thinks it makes her sick and contributes to nausea. She does not mind the IV morphine and has been able to take the MS Contin. She states she still has a lot of pain. Able to eat some soup Current Medications Amlodipine Besylate (Norvasc Tab*) 10 mg PO DAILY [facility] Last Admin: 06/06/18 09:41 Dose: Not Given Cyclobenzaprine HCl (Flexeril Tab*) 10 mg PO TID PRN PRN Reason: SPASMS Last Admin: 06/04/18 16:38 Dose: 10 mg Docusate Sodium (Colace Cap*) 100 mg PO BID [facility] Last Admin: 06/06/18 09:41 Dose: Not Given Hydralazine HCl (Apresoline Iv*) 5 mg IV SLOW PU Q6H PRN PRN Reason: HTN Last Admin: 06/06/18 07:53 Dose: 5 mg Potassium Chloride/Sodium Chloride (Ns 0.9% W/ 20 Meq Kcl 1000 Ml*) 1,000 mls @ 75 mls/hr IV PER RATE [facility] Last Admin: 06/06/18 13:09 Dose: 75 mls/hr Magnesium Hydroxide (Milk Of Magnchelsy Liq*) 30 ml PO BID [facility] Last Admin: 06/06/18 09:41 Dose: Not Given Metoclopramide HCl (Reglan Iv*) 10 mg IV Q6H PRN PRN Reason: NAUSEA/VOMITING Last Admin: 06/04/18 20:01 Dose: 10 mg Metoprolol Succinate (Toprol Xl Tab*) 75 mg PO QAM [facility] Morphine Sulfate (Morphine Oral.Soln 10 Mg*) 20 mg PO Q4H PRN PRN Reason: PAIN - MODERATE TO SEVERE Last Admin: 06/03/18 07:20 Dose: 20 mg Morphine Sulfate (Morphine 4 Mg/Ml Vial (1 Ml)) 4 mg IV Q4H PRN PRN Reason: PAIN - SEVERE Last Admin: 06/06/18 11:57 Dose: 4 mg Morphine Sulfate (Ms Contin(*)) 30 mg PO Q12H [facility] Ondansetron HCl (Zofran Inj*) 4 mg IV Q6H PRN PRN Reason: NAUSEA Last Admin: 06/06/18 07:53 Dose: 4 mg Prochlorperazine Edisylate (Compazine Inj*) 10 mg IV Q6H PRN PRN Reason: NAUSEA/VOMITING Last Admin: 06/05/18 18:49 Dose: 10 mg Pseudoephedrine HCl (Sudafed 12 Hour*) 120 mg PO BID [facility] Stop: 06/08/18 23:59 Senna (Senokot Tab*) 2 tab PO BID [facility] Last Admin: 06/06/18 09:43 Dose: Not Given Sodium Chloride (Sodium Chloride 0.65% Nasal [place]*) 1 spray BOTH NARES Q4H PRN PRN Reason: CONGESTION Sumatriptan Succinate (Imitrex Tab*) 100 mg PO BID PRN PRN Reason: Migraines Last Admin: 06/06/18 13:09 Dose: 100 mg Throat Lozenges (Chloraseptic Sesar*) 1 sesar PO Q6H PRN PRN Reason: SORE THROAT Last Admin: 06/02/18 15:49 Dose: 1 sesar Vital Signs: Temp Pulse Resp BP Pulse Ox 98.1 F 125 16 145/83 95 06/06/18 15:57 06/06/18 16:50 06/06/18 15:57 06/06/18 15:57 06/06/18 16:50 EXAM: NECK: Immobilized in [place] J LUNGS: CLEAR HEART: Reg rhythm ABDOMEN: Soft NEUROLOGIC: Normal tone in arms. Moves all 4 extremities ASSESSMENT: 1. ACDF C4/5 and C5/6 2. Migraines 3. Nausea/Vomiting PLAN: As she is tolerating the MS Contin, will increase to 30 BID. Hopefully can wean off IV and get ready to go home if she can eat
[2018-06-06] MEDS: Saline NASAL SPRAY 0.65%* BTL BOTH NARES PRN (18:08)
[2018-06-06] MEDS: Morphine TAB Extended Release (*) 30 MG TAB.ER PO SCH (19:25)
[2018-06-06] MEDS ORDERED: Pseudoephedrine HCL ER TAB* 120 MG PO SCH (21:00)
[2018-06-06] MEDS: Cyclobenzaprine TAB* 10 MG PO PRN (21:59)
--- NOTE | 2018-06-06 21:59 | PN ---
Progress Note - Progress Note Date of Service: 06/06/18 SOAP: Subjective: []No events ON. Ambulates, Voids. Tolerates PO better. Was able to eat soup. Had BM. Preop RUE pain, weakness, numbness resolved. Patient feels that she is improving. Objective: []VSS, Afebrile Wound s,c,d. No evidence of hematoma. Trachea midline AAOx3, INNA, CN II-XII grossly intact Motor 5/5 all extremities Sensory grossly intact to light touch. Assessment: []62 yof sp ACDF Plan: []M onitor VS, Neurochecks Encourage ambulation XR in am, Consider a dose of steroids. IS DC planning soon Appreciate IM, Dr Janie roberto. Toyin Cunningham MD
[2018-06-07] MEDS: Morphine 4 MG/ML VIAL (1 ml) 4 MG/ML VIAL IV PRN (00:03)
[2018-06-07] MEDS: hydrALAZINE IV* 20 MG/ML VIAL IV SLOW PU PRN (00:26)
[2018-06-07] MEDS: Saline NASAL SPRAY 0.65%* BTL BOTH NARES PRN ×2 (00:31→11:11)
[2018-06-07] MEDS: SUMAtriptan TAB* 100 MG PO PRN (01:16)
[2018-06-07] MEDS: NS 0.9% w/ 20 Meq KCL 1000 ML* 1,000 ML IV SCH (03:32)
[2018-06-07] MEDS: Captopril TAB* 12.5 MG PO SCH ×4 (04:11→20:37)
[2018-06-07 05:07] LABS: Hematocrit 41 % (33-41); Hemoglobin 13.7 g/dL (12.0-16.0); Mean Corpuscular HGB Conc 33 g/dL (31-36); Mean Corpuscular Hemoglobin 30 pg (27-31); Mean Corpuscular Volume 89 fL (80-97); Mean Platelet Volume 6.5 fL (7.4-10.4); Platelet Count 400 10^3/uL (150-450); Red Blood Count 4.59 10^6 /uL (3.70-4.87); Red Cell Distribution Width 13 % (10.5-15)
[2018-06-07 05:21] LABS: BUN/Creatinine Ratio 53.1 (8-20); Calcium 8.6 mg/dL (8.6-10.3); EGFR African American 251.6 (>60); EGFR Non-African American 207.9 (>60); Potassium 3.5 mmol/L (3.5-5.0)
[2018-06-07] MEDS: Ondansetron INJ* 2 MG/ML VIAL IV PRN (07:08)
[2018-06-07] MEDS: PROCHLORPERAZINE INJ 5 MG/ML 2 ML VIAL IV PRN (09:02)
[2018-06-07] MEDS: Morphine TAB Extended Release (*) 30 MG TAB.ER PO SCH ×2 (09:04→19:51)
[2018-06-07] MEDS: Metoprolol Succinate XL TAB* 25 MG PO SCH (10:32)
[2018-06-07] MEDS: Magnesium Hydroxide LIQ* 30 ML UDC PO SCH ×2 (10:33→20:38)
[2018-06-07] MEDS: amLODIPine TAB* 5 MG PO SCH (14:13)
--- NOTE | 2018-06-07 15:30 | PN ---
Subjective Date of Service: 06/07/18 Interval History: Pt's headache has almost resolved. Nausea better, but still has problems swallowing. Ate some scrabbled eggs for breakfast and a little of ice cream today Objective Active Medications: Amlodipine Besylate (Norvasc Tab*) 10 mg PO DAILY [facility] Last Admin: 06/07/18 14:13 Dose: 10 mg Captopril (Capoten Tab*) 6.25 mg PO TID [facility] Last Admin: 06/07/18 13:07 Dose: 6.25 mg Cyclobenzaprine HCl (Flexeril Tab*) 10 mg PO TID PRN PRN Reason: SPASMS Last Admin: 06/06/18 21:59 Dose: 10 mg Docusate Sodium (Colace Cap*) 100 mg PO BID [facility] Last Admin: 06/06/18 23:45 Dose: 100 mg Hydralazine HCl (Apresoline Iv*) 5 mg IV SLOW PU Q6H PRN PRN Reason: HTN Last Admin: 06/07/18 00:26 Dose: 5 mg Magnesium Hydroxide (Milk Of Magnjoiz Liq*) 30 ml PO BID [facility] Last Admin: 06/07/18 10:33 Dose: Not Given Metoclopramide HCl (Reglan Iv*) 10 mg IV Q6H PRN PRN Reason: NAUSEA/VOMITING Last Admin: 06/04/18 20:01 Dose: 10 mg Metoprolol Succinate (Toprol Xl Tab*) 75 mg PO QAM [facility] Last Admin: 06/07/18 10:32 Dose: 75 mg Morphine Sulfate (Morphine Oral.Soln 10 Mg*) 20 mg PO Q4H PRN PRN Reason: PAIN - MODERATE TO SEVERE Last Admin: 06/03/18 07:20 Dose: 20 mg Morphine Sulfate (Morphine 4 Mg/Ml Vial (1 Ml)) 4 mg IV Q4H PRN PRN Reason: PAIN - SEVERE Last Admin: 06/07/18 00:03 Dose: 4 mg Morphine Sulfate (Ms Contin(*)) 30 mg PO Q12H [facility] Last Admin: 06/07/18 09:04 Dose: 30 mg Ondansetron HCl (Zofran Inj*) 4 mg IV Q6H PRN PRN Reason: NAUSEA Last Admin: 06/07/18 07:08 Dose: 4 mg Prochlorperazine Edisylate (Compazine Inj*) 10 mg IV Q6H PRN PRN Reason: NAUSEA/VOMITING Last Admin: 06/07/18 09:02 Dose: 10 mg Senna (Senokot Tab*) 2 tab PO BID [facility] Last Admin: 06/06/18 22:51 Dose: Not Given Sodium Chloride (Sodium Chloride 0.65% Nasal [place]*) 1 spray BOTH NARES Q4H PRN PRN Reason: CONGESTION Last Admin: 06/07/18 11:11 Dose: 1 spray Sumatriptan Succinate (Imitrex Tab*) 100 mg PO BID PRN PRN Reason: Migraines Last Admin: 06/07/18 01:16 Dose: 100 mg Throat Lozenges (Chloraseptic Sesar*) 1 sesar PO Q6H PRN PRN Reason: SORE THROAT Last Admin: 06/02/18 15:49 Dose: 1 sesar Vital Signs - 8 hr 06/07/18 06/07/18 06/07/18 07:37 08:30 09:04 Temperature 97.7 F Pulse Rate 99 Respiratory 16 16 16 Rate Blood Pressure 144/76 (mmHg) O2 Sat by Pulse 93 93 Oximetry 06/07/18 06/07/18 11:08 11:18 Temperature 98.1 F Pulse Rate 94 Respiratory 16 17 Rate Blood Pressure 146/88 (mmHg) O2 Sat by Pulse 96 Oximetry Oxygen Devices in Use Now: None Appearance: 62 yo F in nAD, aAOx3 Eyes: No Scleral Icterus, PERRLA Ears/Nose/Mouth/Throat: NL Teeth, Lips, Gums, Mucous Membranes Moist Neck: NL Appearance and Movements; NL JVP, Trachea Midline Respiratory: Symmetrical Chest Expansion and Respiratory Effort, Clear to Auscultation Cardiovascular: NL Sounds; No Murmurs; No JVD, RRR, - - tachy Abdominal: NL Sounds; No Tenderness; No Distention, No Hepatosplenomegaly Lymphatic: No Cervical Adenopathy Extremities: No Edema, No Clubbing, Cyanosis Skin: No Rash or Ulcers, No Nodules or Sclerosis, - - neck incision covered with post op dressing, not uncovered Neurological: Alert and Oriented x 3, NL Muscle Strength and Tone Result Diagrams: 06/07/18 04:38 06/07/18 04:38 Assess/Plan/Problems-Billing Assessment: 62 yo f s/p anterior cervical diskectomy (ACD) with post op migraine - Patient Problems (1) Cervical spondylosis Comment: post op as per neurosurgery (2) Migraine Comment: the patient states this migraine is similar to what she would develop at home. Improved Continue BID prn imitrex. (3) HTN (hypertension) Comment: patient has a h/o HTN and is on metoprolol XL at baseline. cont added amlodipine at increased dose 10 mg daily (4) Hyponatremia Comment: hypovolemic. will stop IVF today and monitor (5) Dysphagia Comment: swallow eval OK, but questions esophageal dysphagia. Will d/c neurosurgery if esophagogram would be appropiate (6) DVT prophylaxis Comment: ambulation Status and Disposition: Medicine consult, will follow
[2018-06-07] MEDS ORDERED: Dexamethasone IV* 4 MG/ML 1 ML (4 MG) IV SLOW PU ONE (15:55)
[2018-06-07] MEDS: Cyclobenzaprine TAB* 10 MG PO PRN (18:20)
[2018-06-07] MEDS: Docusate CAP* 100 MG PO SCH ×2 (18:21→20:37)
[2018-06-07] MEDS: Senna TAB PO SCH ×2 (18:21→20:38)
[2018-06-08] MEDS: Cyclobenzaprine TAB* 10 MG PO PRN (05:22)
[2018-06-08] MEDS ORDERED: NS 0.9% 1000 ML** 1,000 ML IV SCH (06:00)
[2018-06-08 07:07] LABS: BUN/Creatinine Ratio 42.1 (8-20); Calcium 9.3 mg/dL (8.6-10.3); EGFR African American 206.3 (>60); EGFR Non-African American 170.5 (>60); Potassium 3.6 mmol/L (3.5-5.0)
[2018-06-08] MEDS: Morphine TAB Extended Release (*) 30 MG TAB.ER PO SCH (07:25)
[2018-06-08] MEDS: Captopril TAB* 12.5 MG PO SCH (11:10)
[2018-06-08] MEDS: Magnesium Hydroxide LIQ* 30 ML UDC PO SCH (11:20)
[2018-06-08] MEDS: amLODIPine TAB* 5 MG PO SCH (13:19)
[2018-06-08] MEDS: Metoprolol Succinate XL TAB* 25 MG PO SCH (15:31)
[2018-06-08 15:34] VITALS: BP 134/78
--- NOTE | 2018-06-09 | PN ---
Progress Note - Progress Note Date of Service: 06/08/18 SOAP: Subjective: []Patient seen earlier this am. No events ON. Ambulates, Voids. Tolerates PO better. Wants to go home Objective: []VSS, Afebrile Wound s,c,d. No evidence of hematoma. Trachea midline AAOx3, INNA, CN II-XII grossly intact Motor 5/5 all extremities Sensory grossly intact to light touch. Assessment: []62 yof sp ACDF Plan: []Monitor VS, Neurochecks Encourage ambulation XR revealed good placement of hardware, good alignment of spine. No hematoma or edema. IS DC planning today. Appreciate IM, Dr Janie roberto. Toyin Cunningham MD
--- NOTE | 2018-06-09 09:26 | DS ---
CC: Dr. Fuentes; Dr. Cunningham; Dr. Eastman* DISCHARGE SUMMARY: DATE OF ADMISSION: 06/02/18 DATE OF DISCHARGE: 06/08/18 PRIMARY CARE PROVIDER: Dr. Eastman. DISCHARGE DIAGNOSES: 1. Degenerative disk disease and herniated nucleus pulposus, status post cervical diskectomy and fusion of C4-C5 and C5-C6 with PEEK interbody cage local bone graft, plate, and screws with intraoperative monitoring performed by Dr. Cunningham on 06/02/18. 2. Postoperative intractable migraine. 3. Postoperative dysphagia due to noted on esophageal x-ray narrowing of the esophagus at the level of C4 and C5, likely related to postsurgical swelling. 4. Postoperative hypertension. 5. Postoperative hypovolemia due to poor p.o. intake with hyponatremia that was resolving with IV fluids. SECONDARY DIAGNOSES: 1. History of chronic pain. 2. History of hypertension. 3. History of migraines. MEDICATIONS AT DISCHARGE: The new change to her medications include increase in metoprolol succinate from 50 mg b.i.d. to 75 mg b.i.d. and the patient was prescribed 25 mg metoprolol succinate tablets to take together with her 50 mg tablets to make up to 75 mg b.i.d. Remaining medications are unchanged and include: 1. Aspirin with acetaminophen on a p.r.n. basis. 2. Flexeril 10 mg t.i.d. p.r.n. 3. Meloxicam 7.5 mg b.i.d. 4. Morphine sulfate and naltrexone, which is Embeda ER, 20/0.8 one capsule daily. 5. Fiber therapy 1 tablet daily. 6. Senna 2 tablets b.i.d. as prescribed previously. 7. Imitrex 100 mg b.i.d. 8. Morphine sulfate IR 15 mg every 4 hours p.r.n. as previously ordered. SURGERIES PERFORMED DURING THE HOSPITAL STAY: Included C-spine surgery performed by Dr. Cunningham as mentioned above on 06/02/18. CONSULTATIONS DURING THE HOSPITAL STAY: Included Dr. Lui from hospitalist service; Dr. Fuentes, Pain Management. LABORATORY DATA AND STUDIES PERFORMED DURING THE HOSPITAL STAY: Included on , sodium of 132, potassium 3.6, chloride 96, carbon dioxide 26, BUN 16, creatinine 0.38. On 06/07/18, white blood cell count of 8.0, hemoglobin of 13.7, hematocrit of 41 , and platelets of 400. Esophageal x-ray obtained on 06/08/18, impression: "There is narrowing of the esophagus at the C4-C5 level, which is nonspecific, although likely related to postsurgical swelling. Limited study." Cervical spine x-ray performed on 06/07/18, impression: "Status post anterior cervical fusion." DISCHARGE FOLLOWUP: At discharge, the patient is recommended to follow up with Dr. Cunningham in approximately 7 to 10 days. The patient is to call Dr. Fuentes's office for followup appointment and to call Dr. Fuentes's office if her pain management is not adequate after discharge. The patient is recommended to follow up with her primary care provider in approximately 4 to 7 days. HOSPITALIZATION COURSE: Amanda Fulton is a [id number] with history of chronic pain and degenerative disk disease, who was admitted to the hospital postoperatively after anterior cervical diskectomy performed by Dr. Cunningham. Postoperatively, the patient developed significant nausea and migraine. She was seen by Dr. Fuentes who had managed the patient's pain as outpatient also. Dr. Fuentes recommended for the patient to be switched to morphine immediate release oral solution as well as MS Contin. After approximately 3 days of the patient's hospital stay, her pain resolved. She continued to have problems with dysphagia to the point that she got dehydrated and developed hypochloremic hyponatremia. That was treated with intravenous fluids and by the time discharge, her swallowing markedly improved. She had swallow evaluation by the speech therapist, which noted no abnormalities. An esophagogram was performed on 06/08/18, which showed an area of narrowing at C4-C5 and likely due to postsurgical inflammation. Nevertheless, by the time of discharge, the patient was able to tolerate modified soft diet with good results. As discussed with Dr. Fuentes, at discharge, the patient is going to be discharged with her regular pain medications and she is to call Dr. Fuentes's office if the pain control is inadequate. The patient is to keep her incisional wound dry for the next 3 days. She is to use C-spine collar as directed by Dr. Cunningham. She is advised not to perform any heavy lifting or driving. The patient's condition at discharge stable. PHYSICAL EXAMINATION AT TIME OF DISCHARGE: Blood pressure of 134/78, heart rate of 100 and regular, respiratory rate 15, oxygen saturation 93% on room air , temperature 98.6. General: The patient is a very pleasant 62-year-old female , who is in no acute distress, alert, awake, and oriented x3. HEENT: Head atraumatic, normocephalic. Eyes: Pupils equal, reactive to light and accommodation. Oropharynx is clear. Mucosa moist. Neck: Supple. C-spine collar in place. The anterior incisions are covered with postoperative dressings that we have not removed. There is no evidence of hematoma. Respiratory: Clear to auscultation bilaterally. Cardiovascular: Regular rate and rhythm, tachycardia. No murmur. Abdomen: Soft, nontender. Bowel sounds present in all 4 quadrants. Extremities: There is no edema. Pulses 2+ bilaterally. No clubbing or cyanosis. On neuro evaluation, speech is clear. Cranial nerves II through XII grossly intact. Motor strength is 5/5 bilaterally. Please note that this is a short summary of the patient's hospitalization. Please refer to further medical records for details. TIME SPENT: Approximately 55 minutes was spent on preparation of the patient's discharge. [id number]/[facility] #: [id number] CHERYL
== END 2018-06-08 17:05 | disposition home or self-care (01) | DRG 472 ==
LOC: OR 05:34 → SSU 10:49 → OBSVTOIN 06-04 18:42
PROVIDERS: ADMIT Neurological Surgery; ATTEND Internal Medicine
PROC: 0RB30ZZ Excision of Cervical Vertebral Disc, Open Approach (ICD-10-PCS; 2018-06-02)
PROC: 4A11X4G Monitoring of Peripheral Nervous Electrical Activity, Intraoperative, External Approach (ICD-10-PCS; 2018-06-02)
PROC: 0RG20A0 Fusion of 2 or more Cervical Vertebral Joints with Interbody Fusion Device, Anterior Approach, Anterior Column, Open Approach (ICD-10-PCS; principal; 2018-06-02 07:30)
DX: M47.22 Other spondylosis with radiculopathy, cervical region (principal); E87.1 Hypo-osmolality and hyponatremia; M80.00XA Age-related osteoporosis with current pathological fracture, unspecified site, initial encounter for fracture; M50.121 Cervical disc disorder at C4-C5 level with radiculopathy; M50.122 Cervical disc disorder at C5-C6 level with radiculopathy; G89.29 Other chronic pain; M54.81 Occipital neuralgia; G43.119 Migraine with aura, intractable, without status migrainosus; K22.2 Esophageal obstruction; R13.10 Dysphagia, unspecified; E86.1 Hypovolemia; J30.9 Allergic rhinitis, unspecified; J32.3 Chronic sphenoidal sinusitis; M19.90 Unspecified osteoarthritis, unspecified site; J32.2 Chronic ethmoidal sinusitis; E78.5 Hyperlipidemia, unspecified; F11.90 Opioid use, unspecified, uncomplicated; M79.7 Fibromyalgia; Z85.07 Personal history of malignant neoplasm of pancreas; Z80.3 Family history of malignant neoplasm of breast; Z88.0 Allergy status to penicillin; Z88.2 Allergy status to sulfonamides; Z88.8 Allergy status to other drugs, medicaments and biological substances; Z91.040 Latex allergy status; Z79.82 Long term (current) use of aspirin; Z82.49 Family history of ischemic heart disease and other diseases of the circulatory system; Z82.61 Family history of arthritis; Z87.891 Personal history of nicotine dependence
CPT/HCPCS: 36415; 72040; 74220; 76000; 80048; 83735; 85025; 85027; 93005; A9270-GY; C1713; C1776; G0378; J0360; J0780; J1100; J1170; J2001; J2250; J2270; J2405; J2704; J2765; J3010; J3370; J3475